=== PATIENT | male | born 1970 | race Caucasian/White ===

== ENCOUNTER 2019-05-26 19:40 | Observation (INO) | payer BC ==
[~2019-05-26 19:40] MED LIST: AZITHROMYCIN IV 250 MG in NA CHLORIDE 0.9% 250 ML IVPB SCH
--- OUTSIDE RECORDS SUMMARY | 2019-05-26 21:32 | XMS REPORT ---
:1970 Author Organization [facility] Address [facility] Mushtaq Salmon [address] [place] [id number] Care Team Providers Name Role Phone MARISSA THORNTON Unavailable Unavailable Problems This patient has no known problems. Allergies, Adverse Reactions, Alerts This patient has no known allergies or adverse reactions. Medications This patient has no known medications. Results Test Description Test Time Test Comments Text Results Atomic Results Result Comments (CELLAVISION MANUAL DIFF) 2019-03-03 09:49:00 Test Item Value Reference Range Comments NEUTROPHILS - REL (CELLAVISION)(BEAKER) (test yioa=7833) 84 % LYMPHOCYTES - REL (CELLAVISION)(BEAKER) (test gqgh=9468) 11 % MONOCYTES - REL (CELLAVISION)(BEAKER) (test ivvj=7794) 4 % EOSINOPHILS - REL (CELLAVISION)(BEAKER) (test mfbt=3139) 1 % NEUTROPHILS - ABS (CELLAVISION)(BEAKER) (test axyx=3961) 16.80 K/ul 1.78- 5.38 LYMPHOCYTES - ABS (CELLAVISION)(BEAKER) (test ojpc=4765) 2.20 K/ul 1.32-3.57 MONOCYTES - ABS (CELLAVISION)(BEAKER) (test sgij=5910) 0.80 K/uL 0.30-0.82 EOSINOPHILS - ABS (CELLAVISION)(BEAKER) (test kvny=7422) 0.20 K/uL 0.04-0.54 TOTAL COUNTED (BEAKER) (test rsri=0424) 100 RBC MORPHOLOGY (BEAKER) (test epvo=740) Normal WBC MORPHOLOGY (BEAKER) (test hmfk=108) Normal GIANT PLATELETS (BEAKER) (test ynkv=226) Present PLATELET CONCENTRATION (CELLAVISION)(BEAKER) (test uuej=7371) Adequate Received comment: User comments: Slide comments:BASIC METABOLIC [id number] 07:41:00 Test Item Value Reference Range Comments SODIUM (BEAKER) (test 136 meq/L 136-145 yzem=791) POTASSIUM (BEAKER) (test 4.2 meq/L 3.5-5.1 Specimen slightly iorw=721) hemolyzed CHLORIDE (BEAKER) (test 104 meq/L 98-107 hzlt=643) CO2 (BEAKER) (test 22 meq/L 22-29 jcnz=349) BLOOD UREA NITROGEN 11 mg/dL 7-21 (BEAKER) (test akhs=702) CREATININE (BEAKER) (test 0.77 mg/dL 0.57-1.25 Specimen slightly xbyd=180) hemolyzed GLUCOSE RANDOM (BEAKER) 96 mg/dL 70-105 (test mbcp=764) CALCIUM (BEAKER) (test 8.7 mg/dL 8.4-10.2 uvfm=955) EGFR (BEAKER) (test 107 mL/min/1.73 sq m ESTIMATED GFR IS NOT gshf=9583) ACCURATE CREATININE CLEARANCE IN PREDICTING GLOMERULAR FILTRATION RATE. ESTIMATED GFR IS NOT APPLICABLE FOR DIALYSIS PATIENTS. CBC W/PLT COUNT & AUTO [id number] 06:51:00 Test Item Value Reference Range Comments WHITE BLOOD CELL COUNT (BEAKER) (test sttb=844) 20.0 K/ L 3.5-10.5 RED BLOOD CELL COUNT (BEAKER) (test bzdb=543) 4.98 M/ L 4.63-6.08 HEMOGLOBIN (BEAKER) (test nzkb=018) 13.7 GM/DL 13.7-17.5 HEMATOCRIT (BEAKER) (test zosg=095) 42.8 % 40.1-51.0 MEAN CORPUSCULAR VOLUME (BEAKER) (test jits=162) 85.9 fL 79.0-92.2 MEAN CORPUSCULAR HEMOGLOBIN (BEAKER) (test 27.5 pg 25.7-32.2 odll=915) MEAN CORPUSCULAR HEMOGLOBIN CONC (BEAKER) (test 32.0 GM/DL 32.3-36.5 tprq=038) RED CELL DISTRIBUTION WIDTH (BEAKER) (test 14.6 % 11.6-14.4 rgdh=252) PLATELET COUNT (BEAKER) (test uscb=024) 244 K/CU MM 150-450 MEAN PLATELET VOLUME (BEAKER) (test lknm=336) 11.3 fL 9.4-12.4 NUCLEATED RED BLOOD CELLS (BEAKER) (test 0 /100 WBC 0-0 qohg=082) CBC W/PLT COUNT & AUTO [id number] 08:41:00 Test Item Value Reference Range Comments WHITE BLOOD CELL COUNT (BEAKER) (test sfyn=873) 17.2 K/ L 3.5-10.5 RED BLOOD CELL COUNT (BEAKER) (test jtsi=106) 4.83 M/ L 4.63-6.08 HEMOGLOBIN (BEAKER) (test bskf=009) 13.4 GM/DL 13.7-17.5 HEMATOCRIT (BEAKER) (test lvku=391) 40.8 % 40.1-51.0 MEAN CORPUSCULAR VOLUME (BEAKER) (test ljqi=999) 84.5 fL 79.0-92.2 MEAN CORPUSCULAR HEMOGLOBIN (BEAKER) (test 27.7 pg 25.7-32.2 dbby=157) MEAN CORPUSCULAR HEMOGLOBIN CONC (BEAKER) (test 32.8 GM/DL 32.3-36.5 tquo=822) RED CELL DISTRIBUTION WIDTH (BEAKER) (test 14.4 % 11.6-14.4 lsgd=310) PLATELET COUNT (BEAKER) (test ywvp=377) 240 K/CU MM 150-450 MEAN PLATELET VOLUME (BEAKER) (test muvr=389) 10.8 fL 9.4-12.4 NUCLEATED RED BLOOD CELLS (BEAKER) (test 0 /100 WBC 0-0 ygak=458) (CELLAVISION MANUAL DIFF)2019-03-02 08:41:00 Test Item Value Reference Range Comments NEUTROPHILS - REL (CELLAVISION)(BEAKER) (test 74 % ccej=5597) LYMPHOCYTES - REL (CELLAVISION)(BEAKER) (test 10 % qdsk=6225) MONOCYTES - REL (CELLAVISION)(BEAKER) (test 12 % uogp=4107) ATYPICAL LYMPHOCYTES - REL (CELLAVISION)(BEAKER) 4 % 0-0 (test rzld=9519) NEUTROPHILS - ABS (CELLAVISION)(BEAKER) (test 12.73 K/ul 1.78-5.38 gzqz=3815) LYMPHOCYTES - ABS (CELLAVISION)(BEAKER) (test 1.72 K/ul 1.32-3.57 vcmp=7727) MONOCYTES - ABS (CELLAVISION)(BEAKER) (test 2.06 K/uL 0.30-0.82 tsot=0612) ATYPICAL LYMPHOCYTES - ABS (CELLAVISION)(BEAKER) 0.69 K/uL 0.00-0.00 (test dfwp=6963) TOTAL COUNTED (BEAKER) (test zogh=5296) 100 RBC MORPHOLOGY (BEAKER) (test pwql=810) Normal WBC MORPHOLOGY (BEAKER) (test orup=031) Normal PLT MORPHOLOGY (BEAKER) (test nksj=800) Normal ARTIFACT (CELLAVISION)(BEAKER) (test lyir=9081) Present PLATELET CONCENTRATION (CELLAVISION)(BEAKER) Adequate (test bzur=2904) Received comment: User comments: Slide comments:BASIC METABOLIC [id number] 06:31:00 Test Item Value Reference Range Comments SODIUM (BEAKER) (test 138 meq/L 136-145 jlxv=080) POTASSIUM (BEAKER) (test 3.7 meq/L 3.5-5.1 ifyi=999) CHLORIDE (BEAKER) (test 107 meq/L 98-107 aknx=859) CO2 (BEAKER) (test 26 meq/L 22-29 nvji=048) BLOOD UREA NITROGEN 12 mg/dL 7-21 (BEAKER) (test mdxg=546) CREATININE (BEAKER) (test 0.69 mg/dL 0.57-1.25 gohr=576) GLUCOSE RANDOM (BEAKER) 97 mg/dL 70-105 (test tjib=682) CALCIUM (BEAKER) (test 8.3 mg/dL 8.4-10.2 xfsp=037) EGFR (BEAKER) (test 122 mL/min/1.73 sq m ESTIMATED GFR IS NOT pgve=7439) ACCURATE CREATININE CLEARANCE IN PREDICTING GLOMERULAR FILTRATION RATE. ESTIMATED GFR IS NOT APPLICABLE FOR DIALYSIS PATIENTS. RAD, CHEST, 1 VIEW, NON [id number] 04:33:00Reason for exam:->IABP PlacementShould this be performed at the bedside?->YesFINAL REPORT CLINICAL INDICATION: IABP placement Comparison: 03/01/2019 No radiopaque IABP tip is identified. Please correlate. Repeat imaging can be performed, as indicated. The cardiomediastinal contours are stable. Central pulmonary vascular prominence and bilateral parenchymal opacities are unchanged. There is no pneumothorax. Signed: Shreyas Kim MDReport Verified Date/Time: 03/02/2019 04:33:54 [id number] 17:48:00 Test Item Value Reference Range Comments ACTIVATED CLOTTING TIME 274 sec Reference Range: 74-137 (BEAKER) (test ajfv=879) seconds, Baseline/TESTED AT [place] [address] [id number] 17:48:00 Test Item Value Reference Range Comments ACTIVATED CLOTTING TIME 202 sec Reference Range: 74-137 (BEAKER) (test pnub=508) seconds, Baseline/TESTED AT [place] [address] [id number] 17:48:00 Test Item Value Reference Range Comments ACTIVATED CLOTTING TIME 433 sec Reference Range: 74-137 (BEAKER) (test wmwo=849) seconds, Baseline/TESTED AT [place] [address] [id number] 16:19:00 Test Item Value Reference Range Comments ACTIVATED CLOTTING TIME 301 sec Reference Range: 74-137 (BEAKER) (test jwbh=925) seconds, Baseline/TESTED AT [place] [address] CBC W/PLT COUNT & AUTO [id number] 13:27:00 Test Item Value Reference Range Comments WHITE BLOOD CELL COUNT (BEAKER) (test leai=465) 18.6 K/ L 3.5-10.5 RED BLOOD CELL COUNT (BEAKER) (test xubl=440) 5.11 M/ L 4.63-6.08 HEMOGLOBIN (BEAKER) (test bzcp=820) 14.1 GM/DL 13.7-17.5 HEMATOCRIT (BEAKER) (test xsuq=707) 44.1 % 40.1-51.0 MEAN CORPUSCULAR VOLUME (BEAKER) (test lfvt=426) 86.3 fL 79.0-92.2 MEAN CORPUSCULAR HEMOGLOBIN (BEAKER) (test 27.6 pg 25.7-32.2 uvyo=252) MEAN CORPUSCULAR HEMOGLOBIN CONC (BEAKER) (test 32.0 GM/DL 32.3-36.5 mzsv=966) RED CELL DISTRIBUTION WIDTH (BEAKER) (test 14.3 % 11.6-14.4 iokh=738) PLATELET COUNT (BEAKER) (test cnnk=162) 215 K/CU MM 150-450 MEAN PLATELET VOLUME (BEAKER) (test uono=346) 10.4 fL 9.4-12.4 NUCLEATED RED BLOOD CELLS (BEAKER) (test 0 /100 WBC 0-0 pffg=745) (CELLAVISION MANUAL DIFF)2019-03-01 13:27:00 Test Item Value Reference Range Comments NEUTROPHILS - REL (CELLAVISION)(BEAKER) (test 80 % vyzf=5957) LYMPHOCYTES - REL (CELLAVISION)(BEAKER) (test 11 % gelv=0708) MONOCYTES - REL (CELLAVISION)(BEAKER) (test 9 % rfbb=0952) NEUTROPHILS - ABS (CELLAVISION)(BEAKER) (test 14.88 K/ul 1.78-5.38 nhiq=3310) LYMPHOCYTES - ABS (CELLAVISION)(BEAKER) (test 2.05 K/ul 1.32-3.57 spso=3416) MONOCYTES - ABS (CELLAVISION)(BEAKER) (test 1.67 K/uL 0.30-0.82 uoez=5701) TOTAL COUNTED (BEAKER) (test kmsw=0059) 100 WBC MORPHOLOGY (BEAKER) (test vgdh=173) Normal PLT MORPHOLOGY (BEAKER) (test snit=561) Normal POLYCHROMATOPHILLIC RBCS(BEAKER) (test btel=430) 1+ few ANISOCYTOSIS (BEAKER) (test qjst=043) 1+ few POIKILOCYTES (BEAKER) (test fypr=886) 1+ few ELLIPTOCYTES (BEAKER) (test vkmt=195) 1+ few XIOMARA CELLS (BEAKER) (test rpqs=702) 1+ few ALT (SGPT)2019-03-01 09:33:00 Test Item Value Reference Range Comments ALT (SGPT) (BEAKER) (test vrze=083) 58 U/L 6-55 AST (SGOT)2019-03-01 09:33:00 Test Item Value Reference Range Comments AST (SGOT) (BEAKER) (test juxz=259) 130 U/L 5-34 [id number] 09:33:00 Test Item Value Reference Range Comments LIPASE (BEAKER) (test clgz=358) 15 U/L 8-78 [id number] 09:33:00 Test Item Value Reference Range Comments AMYLASE (BEAKER) (test yonp=129) 32 U/L 25-125 RAD, CHEST, 1 VIEW, NON [id number] 07:59:00Reason for exam:->IABP PlacementShould this be performed at the bedside?->YesFINAL REPORT CLINICAL HISTORY: IABP Placement TECHNIQUE: 1 view of the chest.COMPARISON: 02/28/2019 IMPRESSION: There is no evidence of a radiopaque IABP catheter tip, and clinical correlation is recommended. Diffuse bilateral interstitial infiltrates are similar versus slightly increased. Subpulmonic pleural effusions cannot be excluded. The cardiomediastinal silhouette is magnified by technique. Signed: Olman Denton [facility] Verified Date/Time: 07:59:01 ReadingLocation: [facility] Radiology Reading Room BASIC METABOLIC [id number] 06:30:00 Test Item Value Reference Range Comments SODIUM (BEAKER) (test 134 meq/L 136-145 zfly=107) POTASSIUM (BEAKER) (test 4.2 meq/L 3.5-5.1 Specimen moderately lsjd=104) hemolyzed CHLORIDE (BEAKER) (test 102 meq/L 98-107 zenx=491) CO2 (BEAKER) (test 28 meq/L 22-29 opid=462) BLOOD UREA NITROGEN 9 mg/dL 7-21 (BEAKER) (test vsls=465) CREATININE (BEAKER) (test 0.72 mg/dL 0.57-1.25 Specimen moderately bdyu=336) hemolyzed GLUCOSE RANDOM (BEAKER) 104 mg/dL 70-105 (test pwem=313) CALCIUM (BEAKER) (test 8.5 mg/dL 8.4-10.2 rrtw=647) EGFR (BEAKER) (test 116 mL/min/1.73 sq m ESTIMATED GFR IS NOT bidy=9264) ACCURATE CREATININE CLEARANCE IN PREDICTING GLOMERULAR FILTRATION RATE. ESTIMATED GFR IS NOT APPLICABLE FOR DIALYSIS PATIENTS. RAD, CHEST, 1 VIEW, NON [id number] 07:53:00Reason for exam:->IABP PlacementShould this be performed at the bedside?->YesFINAL REPORT CLINICAL HISTORY: IABP Placement TECHNIQUE: 1 view of the chest.COMPARISON: 02/27/2019 IMPRESSION: The previous IABP catheter tip is no longer seen, and clinical correlation is requested. Diffuse bilateral airspace lung opacities are similar appearing. There is no significant appearing pleural fluid. The cardiomediastinal silhouette is magnified by technique. Signed: [facility] Verified Date/Time: 02/28/2019 07:53:38 Reading Location: [facility] Radiology Reading Room [facility] [id number] 06:33:00 Test Item Value Reference Range Comments TROPONIN I (BEAKER) (test kbep=847) 56.68 ng/mL 0.00-0.03 Troponin I (TnI) levels must be interpreted in the context of the presenting symptoms and the clinical findings. Elevated TnI levels indicate myocardial damage, but are not specific for ischemic heart disease. Elevated TnI levels are seen in patients with other cardiac conditions (including myocarditis and congestive heart failure), and slight TnI elevations occur in patients with other conditions, including sepsis, renal failure, acidosis, acute neurological disease, and persistent tachyarrhythmia.BASIC METABOLIC [id number] 06:09:00 Test Item Value Reference Range Comments SODIUM (BEAKER) (test 134 meq/L 136-145 pjah=299) POTASSIUM (BEAKER) (test 4.0 meq/L 3.5-5.1 Specimen slightly ccdn=280) hemolyzed CHLORIDE (BEAKER) (test 100 meq/L 98-107 lmtt=156) CO2 (BEAKER) (test 28 meq/L 22-29 hxmy=500) BLOOD UREA NITROGEN 10 mg/dL 7-21 (BEAKER) (test sbra=331) CREATININE (BEAKER) (test 0.71 mg/dL 0.57-1.25 Specimen slightly nepj=854) hemolyzed GLUCOSE RANDOM (BEAKER) 85 mg/dL 70-105 (test mwaj=054) CALCIUM (BEAKER) (test 8.4 mg/dL 8.4-10.2 pbbv=860) EGFR (BEAKER) (test 118 mL/min/1.73 sq m ESTIMATED GFR IS NOT dlwt=1493) ACCURATE CREATININE CLEARANCE IN PREDICTING GLOMERULAR FILTRATION RATE. ESTIMATED GFR IS NOT APPLICABLE FOR DIALYSIS PATIENTS. CBC W/PLT COUNT & AUTO [id number] 06:09:00 Test Item Value Reference Range Comments WHITE BLOOD CELL COUNT (BEAKER) (test lllr=908) 19.8 K/ L 3.5-10.5 RED BLOOD CELL COUNT (BEAKER) (test dhak=196) 4.92 M/ L 4.63-6.08 HEMOGLOBIN (BEAKER) (test jkfv=404) 13.6 GM/DL 13.7-17.5 HEMATOCRIT (BEAKER) (test pajs=957) 42.6 % 40.1-51.0 MEAN CORPUSCULAR VOLUME (BEAKER) (test rnuq=418) 86.6 fL 79.0-92.2 MEAN CORPUSCULAR HEMOGLOBIN (BEAKER) (test 27.6 pg 25.7-32.2 ucfs=942) MEAN CORPUSCULAR HEMOGLOBIN CONC (BEAKER) (test 31.9 GM/DL 32.3-36.5 sawy=853) RED CELL DISTRIBUTION WIDTH (BEAKER) (test 14.5 % 11.6-14.4 sdbt=829) PLATELET COUNT (BEAKER) (test hoih=196) 226 K/CU MM 150-450 MEAN PLATELET VOLUME (BEAKER) (test hiov=515) 10.8 fL 9.4-12.4 NUCLEATED RED BLOOD CELLS (BEAKER) (test 0 /100 WBC 0-0 enwv=638) NEUTROPHILS RELATIVE PERCENT (BEAKER) (test 77 % jodx=400) LYMPHOCYTES RELATIVE PERCENT (BEAKER) (test 14 % escv=307) MONOCYTES RELATIVE PERCENT (BEAKER) (test 9 % bfvf=964) EOSINOPHILS RELATIVE PERCENT (BEAKER) (test 0 % ncqt=551) BASOPHILS RELATIVE PERCENT (BEAKER) (test 0 % rvzx=898) NEUTROPHILS ABSOLUTE COUNT (BEAKER) (test 15.13 K/ L 1.78-5.38 yqri=762) LYMPHOCYTES ABSOLUTE COUNT (BEAKER) (test 2.77 K/ L 1.32-3.57 tlup=914) MONOCYTES ABSOLUTE COUNT (BEAKER) (test 1.68 K/ L 0.30-0.82 hzqa=750) EOSINOPHILS ABSOLUTE COUNT (BEAKER) (test 0.03 K/ L 0.04-0.54 mbno=256) BASOPHILS ABSOLUTE COUNT (BEAKER) (test 0.03 K/ L 0.01-0.08 wnnd=528) IMMATURE GRANULOCYTES-RELATIVE PERCENT (BEAKER) 1 % 0-1 (test vlcb=9352) TROPONIN [id number] 16:46:00 Test Item Value Reference Range Comments TROPONIN I (BEAKER) (test lskd=172) 77.92 ng/mL 0.00-0.03 Troponin I (TnI) levels must be interpreted in the context of the presenting symptoms and the clinical findings. Elevated TnI levels indicate myocardial damage, but are not specific for ischemic heart disease. Elevated TnI levels are seen in patients with other cardiac conditions (including myocarditis and congestive heart failure), and slight TnI elevations occur in patients with other conditions, including sepsis, renal failure, acidosis, acute neurological disease, and persistent tachyarrhythmia.[id number] 12:16:00 Test Item Value Reference Range Comments PARTIAL THROMBOPLASTIN TIME (BEAKER) (test 47.8 seconds 22.5-36.0 jvuz=650) [id number] 06:16:00 Test Item Value Reference Range Comments MAGNESIUM (BEAKER) (test dynr=679) 1.8 mg/dL 1.6-2.6 HEMOGLOBIN [id number] 05:58:00 Test Item Value Reference Range Comments HEMOGLOBIN A1C (BEAKER) (test xjww=166) 5.7 % 4.3-6.1 TROPONIN [id number] 05:53:00 Test Item Value Reference Range Comments TROPONIN I (BEAKER) (test wwsj=541) 122.58 ng/mL 0.00-0.03 Troponin I (TnI) levels must be interpreted in the context of the presenting symptoms and the clinical findings. Elevated TnI levels indicate myocardial damage, but are not specific for ischemic heart disease. Elevated TnI levels are seen in patients with other cardiac conditions (including myocarditis and congestive heart failure), and slight TnI elevations occur in patients with other conditions, including sepsis, renal failure, acidosis, acute neurological disease, and persistent tachyarrhythmia.[id number] 05:43:00 Test Item Value Reference Range Comments PARTIAL THROMBOPLASTIN TIME (BEAKER) (test 34.6 seconds 22.5-36.0 ixhg=709) BASIC METABOLIC [id number] 05:37:00 Test Item Value Reference Range Comments SODIUM (BEAKER) (test 138 meq/L 136-145 plda=734) POTASSIUM (BEAKER) (test 4.3 meq/L 3.5-5.1 yduo=235) CHLORIDE (BEAKER) (test 105 meq/L 98-107 pcge=948) CO2 (BEAKER) (test 27 meq/L 22-29 cnts=798) BLOOD UREA NITROGEN 13 mg/dL 7-21 (BEAKER) (test dcia=306) CREATININE (BEAKER) (test 0.79 mg/dL 0.57-1.25 hcsl=248) GLUCOSE RANDOM (BEAKER) 122 mg/dL 70-105 (test mjfy=360) CALCIUM (BEAKER) (test 8.6 mg/dL 8.4-10.2 oowe=108) EGFR (BEAKER) (test 104 mL/min/1.73 sq m ESTIMATED GFR IS NOT zoni=8296) ACCURATE CREATININE CLEARANCE IN PREDICTING GLOMERULAR FILTRATION RATE. ESTIMATED GFR IS NOT APPLICABLE FOR DIALYSIS PATIENTS. CBC W/PLT COUNT & AUTO [id number] 05:17:00 Test Item Value Reference Range Comments WHITE BLOOD CELL COUNT (BEAKER) (test bzij=955) 27.1 K/ L 3.5-10.5 RED BLOOD CELL COUNT (BEAKER) (test ktgh=932) 5.19 M/ L 4.63-6.08 HEMOGLOBIN (BEAKER) (test ujeq=238) 14.3 GM/DL 13.7-17.5 HEMATOCRIT (BEAKER) (test kuxe=975) 44.6 % 40.1-51.0 MEAN CORPUSCULAR VOLUME (BEAKER) (test tbst=456) 85.9 fL 79.0-92.2 MEAN CORPUSCULAR HEMOGLOBIN (BEAKER) (test 27.6 pg 25.7-32.2 jges=393) MEAN CORPUSCULAR HEMOGLOBIN CONC (BEAKER) (test 32.1 GM/DL 32.3-36.5 zjme=079) RED CELL DISTRIBUTION WIDTH (BEAKER) (test 14.4 % 11.6-14.4 zfdo=908) PLATELET COUNT (BEAKER) (test ohom=413) 258 K/CU MM 150-450 MEAN PLATELET VOLUME (BEAKER) (test lwco=253) 10.5 fL 9.4-12.4 NUCLEATED RED BLOOD CELLS (BEAKER) (test 0 /100 WBC 0-0 qtdp=193) RAD, CHEST, 1 VIEW, NON [id number] 04:38:00Reason for exam:->IABP PlacementShould this be performed at the bedside?->YesFINAL REPORT History: IABP placement. Comparison: 10/20/2014 Findings: A single view of the chest is submitted. The inferior right costophrenic sulcus is excluded from the examination. The radiopaque tip of an IABP overlies the superior margin of the aortic arch. The cardiac silhouette is within normal limits for size. There is central vascular congestion. Diffuse interstitialand patchy airspace opacities suggest pulmonary edema. There is no pneumothorax, large effusion oracute bony abnormality. Signed: Shreyas Kim MDRep[facility] Verified Date/Time: 02/27/2019 04:38:12 I [id number] 22:47:00 Test Item Value Reference Range Comments TROPONIN I (BEAKER) (test pjfl=596) 173.21 ng/mL 0.00-0.03 Troponin I (TnI) levels must be interpreted in the context of the presenting symptoms and the clinical findings. Elevated TnI levels indicate myocardial damage, but are not specific for ischemic heart disease. Elevated TnI levels are seen in patients with other cardiac conditions (including myocarditis and congestive heart failure), and slight TnI elevations occur in patients with other conditions, including sepsis, renal failure, acidosis, acute neurological disease, and persistent tachyarrhythmia.CBC W/PLT COUNT & AUTO [id number] 22:45:00 Test Item Value Reference Range Comments WHITE BLOOD CELL COUNT (BEAKER) (test qxxm=953) 26.9 K/ L 3.5-10.5 RED BLOOD CELL COUNT (BEAKER) (test dukt=433) 5.52 M/ L 4.63-6.08 HEMOGLOBIN (BEAKER) (test orny=884) 15.2 GM/DL 13.7-17.5 HEMATOCRIT (BEAKER) (test jnop=362) 47.2 % 40.1-51.0 MEAN CORPUSCULAR VOLUME (BEAKER) (test yrzp=754) 85.5 fL 79.0-92.2 MEAN CORPUSCULAR HEMOGLOBIN (BEAKER) (test 27.5 pg 25.7-32.2 ffbr=083) MEAN CORPUSCULAR HEMOGLOBIN CONC (BEAKER) (test 32.2 GM/DL 32.3-36.5 cysa=188) RED CELL DISTRIBUTION WIDTH (BEAKER) (test 14.4 % 11.6-14.4 ktqa=360) PLATELET COUNT (BEAKER) (test yrvs=887) 269 K/CU MM 150-450 MEAN PLATELET VOLUME (BEAKER) (test dnou=932) 10.1 fL 9.4-12.4 NUCLEATED RED BLOOD CELLS (BEAKER) (test 0 /100 WBC 0-0 nvhx=843) (CELLAVISION MANUAL DIFF)2019-02-26 22:45:00 Test Item Value Reference Range Comments NEUTROPHILS - REL (CELLAVISION)(BEAKER) (test 80 % icck=6188) LYMPHOCYTES - REL (CELLAVISION)(BEAKER) (test 15 % rgpp=4170) MONOCYTES - REL (CELLAVISION)(BEAKER) (test 3 % xxjg=8686) BASOPHILS - REL (CELLAVISION)(BEAKER) (test 1 % ikmp=9545) BANDS - REL (CELLAVISION)(BEAKER) (test 1 % 0-10 aodp=7653) NEUTROPHILS - ABS (CELLAVISION)(BEAKER) (test 21.52 K/ul 1.78-5.38 skam=7906) LYMPHOCYTES - ABS (CELLAVISION)(BEAKER) (test 4.04 K/ul 1.32-3.57 nypc=7350) MONOCYTES - ABS (CELLAVISION)(BEAKER) (test 0.81 K/uL 0.30-0.82 gstp=2278) BASOPHILS - ABS (CELLAVISION)(BEAKER) (test 0.27 K/uL 0.01-0.08 tgnh=1160) BANDS - ABS (CELLAVISION)(BEAKER) (test 0.27 K/uL 0.00-0.80 lshw=2997) TOTAL COUNTED (BEAKER) (test sfsw=2326) 100 MANUAL NRBC PER 100 CELLS (BEAKER) (test 2 /100 WBC 0-0 fuil=3410) RBC MORPHOLOGY (BEAKER) (test cujf=242) Normal PLT MORPHOLOGY (BEAKER) (test phee=957) Normal SMUDGE CELLS (BEAKER) (test wbgv=3612) Present PLATELET CONCENTRATION (CELLAVISION)(BEAKER) Adequate (test bnwl=3228) Received comment: User comments: Slide comments:TSH/FREE T4 IF [id number] 22:43:00 Test Item Value Reference Range Comments THYROID STIMULATING HORMONE (BEAKER) (test 0.70 uIU/mL 0.35-4.94 utdf=496) B-TYPE NATRIURETIC FACTOR (BNP)2019-02-26 22:29:00 Test Item Value Reference Range Comments B-TYPE NATRIURETIC PEPTIDE (BEAKER) (test przy=854) 20 pg/mL 0-100 [id number] 22:23:00 Test Item Value Reference Range Comments MAGNESIUM (BEAKER) (test qboq=704) 1.7 mg/dL 1.6-2.6 BASIC METABOLIC [id number] 22:23:00 Test Item Value Reference Range Comments SODIUM (BEAKER) (test 137 meq/L 136-145 coto=661) POTASSIUM (BEAKER) (test 4.1 meq/L 3.5-5.1 ewkc=677) CHLORIDE (BEAKER) (test 105 meq/L 98-107 qfvd=751) CO2 (BEAKER) (test 24 meq/L 22-29 rign=754) BLOOD UREA NITROGEN 11 mg/dL 7-21 (BEAKER) (test kxsb=778) CREATININE (BEAKER) (test 0.82 mg/dL 0.57-1.25 fiuw=108) GLUCOSE RANDOM (BEAKER) 123 mg/dL 70-105 (test trdb=497) CALCIUM (BEAKER) (test 8.3 mg/dL 8.4-10.2 yupk=037) EGFR (BEAKER) (test 100 mL/min/1.73 sq m ESTIMATED GFR IS NOT nukn=3853) ACCURATE CREATININE CLEARANCE IN PREDICTING GLOMERULAR FILTRATION RATE. ESTIMATED GFR IS NOT APPLICABLE FOR DIALYSIS PATIENTS. LIPID [id number] 22:23:00 Test Item Value Reference Range Comments TRIGLYCERIDES (BEAKER) (test aipe=502) 108 mg/dL CHOLESTEROL (BEAKER) (test ybrw=399) 153 mg/dL HDL CHOLESTEROL (BEAKER) (test scys=309) 29 mg/dL LDL CHOLESTEROL CALCULATED (BEAKER) (test 102 mg/dL neut=095) Triglyceride Reference Range: Low Risk <150 Borderline 150- 199 High Risk 200-499 Very High Risk >=500Cholesterol Reference Range: Low Risk <200 Borderline 200-239 High Risk > 240HDL Cholesterol Reference Range: Low Risk >=60 High Risk <40LDL Cholesterol Reference Range: Optimal <100 Near Optimal 100-129 Borderline 130-159 High 160-189 Very High >=190HEPATIC FUNCTION [id number] 22:23:00 Test Item Value Reference Range Comments TOTAL PROTEIN (BEAKER) (test eofd=377) 7.1 gm/dL 6.0-8.3 ALBUMIN (BEAKER) (test hmrt=4822) 3.9 g/dL 3.5-5.0 BILIRUBIN TOTAL (BEAKER) (test xapl=487) 0.5 mg/dL 0.2-1.2 BILIRUBIN DIRECT (BEAKER) (test yqhk=720) 0.2 mg/dL 0.1-0.5 ALKALINE PHOSPHATASE (BEAKER) (test cbnn=665) 83 U/L 40-150 AST (SGOT) (BEAKER) (test mnip=538) 373 U/L 5-34 ALT (SGPT) (BEAKER) (test laou=224) 81 U/L 6-55 [id number] 19:27:00 Test Item Value Reference Range Comments ACTIVATED CLOTTING TIME 197 sec Reference Range: 74-137 (BEAKER) (test bibl=205) seconds, Baseline/TESTED AT [place] [address] [id number] 18:21:00 Test Item Value Reference Range Comments ACTIVATED CLOTTING TIME 296 sec Reference Range: 74-137 (BEAKER) (test fyqc=025) seconds, Baseline/TESTED AT [place] [address] [id number] 18:21:00 Test Item Value Reference Range Comments ACTIVATED CLOTTING TIME 213 sec Reference Range: 74-137 (BEAKER) (test nbke=823) seconds, Baseline/TESTED AT [place] [address]
[2019-05-26 22:06] VITALS: BMI 25.4
[2019-05-26] MEDS ORDERED: ACETAMINOPHEN 500 MG TAB PO PRN (22:46)
[2019-05-26] MEDS ORDERED: ONDANSETRON 4 MG/2 ML VIAL IV PRN (22:46)
[2019-05-26] MEDS ORDERED: Levofloxacin 750mg IV 750 MG/150 ML BAG IV SCH (23:00)
[2019-05-26] MEDS: NA CHLORIDE 0.9% 1,000 ML IV SCH (23:27)
[2019-05-27] MEDS: METHYLPREDNISOLONE 40 MG INJ IV SCH ×4 (00:56→18:06)
[2019-05-27] MEDS ORDERED: CEFTRIAXONE 1 GM/NS 50 ML 1 GM/50 ML BAG IV SCH ×2 (01:00→18:00)
[2019-05-27] MEDS: ALBUTEROL 2.5 MG/3 ML NEB SOL NEB SCH ×4 (01:20→20:10)
[2019-05-27] MEDS: IPRATROPIUM BROM 0.5MG/2.5ML NEB SCH ×4 (01:20→20:10)
--- NOTE | 2019-05-27 03:17 | P.HP ---
Certification for Inpatient Patient admitted to: Observation With expected LOS: <2 Midnights Patient will require the following post-hospital care: None Practitioner: I am a practitioner with admitting privileges, knowledge of patient current condition, hospital course, and medical plan of care. Services: Services provided to patient in accordance with Admission requirements found in Title 42 Section 412.3 of the Code of Federal Regulations Patient History Date of Service: 05/26/19 Reason for admission: Pneumonia History of Present Illness: Patient is a 49-year-old gentleman who came to the hospital with shortness of breath. Patient has been having some upper respiratory symptoms including coughing and he is congested. In the emergency room, chest x-ray revealed bilateral lower lobe pneumonia. Patient was tachypneic and tachycardic. Patient will be admitted to the hospital for further workup. Patient is also a smoker. Patient smokes about a pack a day. He may also have COPD. He will be admitted to the hospital for further evaluation. Allergies levofloxacin [From Levaquin] Allergy (Verified 05/26/19 23:44) Itching/Hives/Rash Home Medications: Aspirin 81 mg PO DAILY 05/26/19 Atorvastatin Calcium [Lipitor] 80 mg PO BEDTIME 05/26/19 Cyclobenzaprine [Flexeril*] 10 mg PO BID PRN 05/26/19 Duloxetine HCl 60 mg PO BID 05/26/19 Furosemide [Lasix] 20 mg PO DAILYPRN PRN 05/26/19 Hydrocodone Bit/Acetaminophen [Hydrocodon-Acetaminophn 10-325] 1 tab PO TIDP PRN 05/26/19 Metoprolol Tartrate 50 mg PO BID 05/26/19 Morphine Ir [MSIR (Morphine Sulfate IR)*] 15 mg PO BEDTIME 05/26/19 Omeprazole 20 mg PO BID 05/26/19 Testosterone Cypionate [Testone Cik] 1 mg IM SEECOM 05/26/19 Ticagrelor [Brilinta*] 90 mg PO BID 05/26/19 - Past Medical/Surgical History Has patient received pneumonia vaccine in the past: No -: Coronary artery disease-2019 -: Pancreatitis -: Pancreatic Stents -: Dyslipidemia -: Chronic Back Pain -: Pancreatic Surgery - Family History Father Medical History: Lung disease, Diabetes, Other (see notes) Notes: CHF, COPD Mother Medical History: Hypertension, Other (see notes) Notes: High Cholesterol - Social History Smoking Status: Current some day smoker Alcohol use: No CD- Drugs: No Caffeine use: Yes Place of Residence: Home Review of Systems 10-point ROS is otherwise unremarkable Physical Examination - Vital Signs Temperature: 97.8 F Blood Pressure: 92/61 Pulse: 89 Respirations: 18 Pulse Ox (%): 94 - Physical Exam General: Alert, In no apparent distress, Oriented x3 HEENT: Atraumatic, PERRLA, Mucous membr. moist/pink, EOMI, Sclerae nonicteric Neck: Supple, 2+ carotid pulse no bruit, No LAD, Without JVD or thyroid abnormality Respiratory: Diminished, Expiratory wheezes, Rhonchi/gurgles Cardiovascular: Regular rate/rhythm, Normal S1 S2, No murmurs Gastrointestinal: Normal bowel sounds, Soft and benign, Non-distended, No tenderness, No rebound, No guarding Musculoskeletal: No clubbing, No swelling, No tenderness Integumentary: No rashes Neurological: Normal gait, Normal speech, Normal strength at 5/5 x4 extr, Normal tone, Sensation intact, Cranial nerves 3-12 intact, Normal affect Lymphatics: No axilla or inguinal lymphadenopathy - Studies Microbiology Data (last 24 hrs): 05/26/19 23:30 Nasopharnyx Influenza Type A Antigen Screen - Final 05/26/19 23:30 Nasopharnyx Influenza Type B Antigen Screen - Final Assessment & Plan - Problems (Diagnosis) (1) Pneumonia of both lower lobes Current Visit: Yes Status: Acute (2) COPD with acute exacerbation Current Visit: Yes Status: Acute (3) Tobacco abuse Current Visit: Yes Status: Acute (4) CAD (coronary artery disease) Current Visit: Yes Status: Acute Qualifiers: Coronary Disease-Associated Artery/Lesion type: gambell artery - Plan 1. Continue with IV antibiotics 2. Awaiting sputum and blood culture 3. Repeat chest x-ray 4. Will proceed with CT scan of the chest if pneumonia is not improved to evaluate for postobstructive pneumonia 5. Pulmonary consultation if the patient symptoms are not improving 6. Continue with nebs as needed and also start IV steroids 7. O2 per protocol 8. Continue with gentle hydration 9. Repeat labs including CBC and renal function in a.m. 10. GI and DVT prophylaxis Discharge Plan: Home Plan to discharge in: 48 Hours - Advance Directives Does patient have a Living Will: No Does patient have a Durable POA for Healthcare: No - Code Status/Comfort Care Code Status Assessed: Yes Code Status: Full Code Critical Care: No Time Spent Managing PTS Care (In Minutes): 45
[2019-05-27 06:05] LABS: Absolute Lymphocytes (CBC) 1.3 K/uL (0.7-4.9); Basophils % 0.2 % (0-1.3); Hematocrit 42.7 % (39.6-49.0); Lymphocytes % 10.8 % (15.3-44.8); MPV 9.6 fL (7.6-11.3); RBC Red Blood Cell Count 5.09 M/uL (4.33-5.43)
[2019-05-27 06:26] LABS: Bilirubin Total 0.5 mg/dL (0.2-1.0); Magnesium 2.1 mg/dL (1.8-2.4); Phosphorus 2.5 mg/dL (2.5-4.9); Protein, Total 7.2 g/dL (6.4-8.2)
[2019-05-27 06:58] LABS: Blood Morphology Comment NOT SEEN (NOT SEEN); Platelet Estimate ADEQ; Urine White Blood Cell Casts OK
[2019-05-27] MEDS ORDERED: CEFTRIAXONE/SWI 1gm 1 GM/10 ML SYR IVP SCH (09:00)
[2019-05-27] MEDS: ENOXAPARIN 40 MG/0.4 ML SQ SCH (09:00)
[2019-05-27] MEDS ORDERED: AZITHROMYCIN IV 250 MG in NA CHLORIDE 0.9% 250 ML IVPB SCH ×2 (09:00→19:00)
[2019-05-27] MEDS ORDERED: FUROSEMIDE 20 MG TABLET PO PRN (10:35)
[2019-05-27] MEDS ORDERED: CYCLOBENZAPRINE 10 MG TAB PO PRN (10:35)
[2019-05-27] MEDS: HYDROCODONE/APAP 10/325 TAB PO PRN ×2 (12:11→18:11)
[2019-05-27] MEDS: NA CHLORIDE 0.9% 1,000 ML IV SCH (12:20)
--- NOTE | 2019-05-27 14:52 | RAD REPORT ---
EXAM DESCRIPTION: Marlene Pa And Lat (2 Views)05/27/2019 2:29 pm CLINICAL HISTORY: Cough COMPARISON: 2014 FINDINGS: Diffuse bilateral interstitial lung opacities are present. The heart is upper limits normal size. Small pleural effusions suspected IMPRESSION: Moderate diffuse bilateral interstitial pulmonary opacities may represent an atypical in fection, pneumonitis or miliary disease
[2019-05-27] MEDS ORDERED: PANTOPRAZOLE 40MG TABLET PO SCH (16:30)
--- NOTE | 2019-05-27 16:56 | PN ---
Subjective: Currently, patient is lying in bed. He looks comfortable. He is eating his lunch. No chest pain. No abdominal pain. Continues to be short of breath. Objective: Vital Signs: Blood pressure is 101/56, respiratory rate 17, pulse 99, temperature 97.7. Patient is saturating 97% on 2 L nasal cannula. General: He is alert and oriented x3. Does not look in any distress. HEENT: Atraumatic, normocephalic. PERRLA. Oral mucosa is moist. Neck: Supple. No JVD. No bruits. Chest: Decreased breath sound in the bases. Expiratory wheezing. Heart: Regular rate and rhythm. S1, S2 normal. No gallop or murmur. Abdomen: Soft, nontender. No masses. No hepatosplenomegaly. Positive bowel sounds. Extremities: No clubbing, cyanosis, or edema. No calf tenderness. Neurologic: Grossly intact. Cranial nerve exam 2 through 12 intact. Normal sensation. Normal refl exes. Normal muscle strength. Laboratory Data: This morning, white blood cells , platelets normal. Chemistry within nor mal except for chloride of 108, GFR of 89. BNP Assessment/plan: 1.Bilateral lower lobe pneumonia on CT done at [facility]. Continue IV antibiotics with Zi thromax and ceftriaxone. Continue patient on oxygen inhalers as before. 2.History of coronary artery disease. Patient on atorvastatin, metoprolol, aspirin as before as wel l as Falguni. 3.History of tobacco abuse with questionable history of chronic obstructive pulmonary disease. Zulema ent denies history of chronic obstructive pulmonary disease. 4.Elevated BNP. I will order echocardiogram except I am not sure if it will be done due to the week end. 5.Deep vein thrombosis prophylaxis, on Lovenox. Continue. 6.Elevated BNP? congestive heart failure. We will order chest x-ray today. We will start patient on Lasix 40 daily IV and order echocardiogram. MT/MODL Voice ID: [id number] Report ID: [id number]
[2019-05-27 20:58] VITALS: BP 99/62; TEMP 98.6
[2019-05-27] MEDS ORDERED: TICAGRELOR 90 MG TABLET PO SCH (21:00)
[2019-05-27] MEDS ORDERED: DULOXETINE 30 MG CAP PO SCH (21:00)
[2019-05-27] MEDS ORDERED: HOME MED 1 EA UNK (Omeprazole [Omeprazole] 20 MG) PO SCH (21:00)
[2019-05-27] MEDS ORDERED: ATORVASTATIN 80 MG TAB PO SCH (21:00)
[2019-05-27] MEDS ORDERED: METOPROLOL TAR 25 MG TAB PO SCH (21:00)
[2019-05-27] MEDS ORDERED: HOME MED 1 EA UNK (Duloxetine Hcl [Duloxetine Hcl] 60 MG) PO SCH (21:00)
[2019-05-27 22:01] VITALS: O2SAT 93
[2019-05-28] MEDS ORDERED: FUROSEMIDE 40 MG/4 ML VIAL IV SCH (09:00)
[2019-05-28] MEDS ORDERED: ASPIRIN 81 MG CHEWABLE TABLET PO SCH (09:00)
== END 2019-05-27 20:58 | disposition left against medical advice (07) ==
LOC: 2ND 19:40
PROVIDERS: ADMIT Hospitalist; ATTEND Hospitalist
DX: J18.9 Pneumonia, unspecified organism (principal); R79.89 Other specified abnormal findings of blood chemistry; I25.10 Atherosclerotic heart disease of native coronary artery without angina pectoris; K85.90 Acute pancreatitis without necrosis or infection, unspecified; F17.210 Nicotine dependence, cigarettes, uncomplicated; Z53.29 Procedure and treatment not carried out because of patient's decision for other reasons; Z79.82 Long term (current) use of aspirin
CPT/HCPCS: 87040; 85025; 36415 ×2; 83735; 84100; 80061; 83605; 80053; 84145; 83880; 87804 ×2; 71046; 94640 ×4; 94760 ×3; J0456; J0696; J7030; J2920 ×4; G0378 ×3; J1650

== ENCOUNTER 2024-12-10 22:24 | Inpatient (IN) | payer BC ==
[2024-12-10] MEDS ORDERED: LORazepam 2 MG/ML VIAL ONE (22:55)
[2024-12-10] MEDS ORDERED: NA CHLORIDE 0.9% 500 ML ONE (22:55)
[2024-12-10] MEDS ORDERED: NA CHLORIDE 0.9% 2,000 ML ONE (22:55)
[2024-12-10 23:12] LABS: Absolute Lymphocytes (CBC) 1.0 K/uL (0.7-4.9); Hematocrit 52.1 % (39.6-49.0); Hemoglobin 16.6 g/dL (13.6-17.9); MCH 23.8 pg (27.0-35.0); MCHC 31.9 g/dL (32.0-36.0); MCV 74.6 fL (80-100); MPV 8.7 fL (7.6-11.3); Nucleated RBC Absolute Count 0.0 (0-0); Nucleated Red Blood Cells % 0.1 % (0-0); RBC Red Blood Cell Count 6.98 M/uL (4.33-5.43); White Blood Count 16.10 thou/uL (4.3-10.9)
[2024-12-10 23:18] LABS: PT Prothrombin Time 13.1 SECONDS (10-13.0); Protime INR 1.16
[2024-12-10] MEDS ORDERED: METHYLPREDNISOLONE 125 MG INJ ONE (23:26)
[2024-12-10] MEDS ORDERED: IPRATROPIUM BROM 0.5MG/2.5ML ONE (23:26)
[2024-12-10] MEDS ORDERED: AZITHROMYCIN 500 MG INJ IVPB ONE (23:27)
[2024-12-10] MEDS ORDERED: FAMOTIDINE 20 MG/2 ML VIAL IV ONE (23:27)
[2024-12-10] MEDS ORDERED: FUROSEMIDE 20 MG/ 2ML VIAL ONE (23:27)
[2024-12-10] MEDS ORDERED: LEVALBUTEROL 1.25 MG/3 ML NEB ONE (23:27)
[2024-12-10] MEDS ORDERED: CEFTRIAXONE 2000 MG/VIAL ONE (23:27)
[2024-12-10] MEDS ORDERED: NA CHLORIDE 0.9% 250 ML ONE (23:28)
[2024-12-10 23:34] LABS: ALT/SGPT 21.0 U/L (16-61); AST/SGOT 23.0 U/L (15-37); Albumin 3.9 g/dL (3.4-5.0); Albumin/Globulin Ratio 1.1 (1.1-1.8); Alkaline Phosphatase 78.0 U/L (45-117); Anion Gap 9.2 mEq/L (5.0-15.0); BUN Blood Urea Nitrogen 13.0 mg/dL (7-18); Bilirubin Indirect, Calculated 1.2 mg/dL (0.2-0.8); Globulin 3.5 g/dL (2.3-3.5); Glucose Level 106.0 mg/dL (74-106); Magnesium 2.3 mg/dL (1.6-2.4); NT PRO-BNP 1342.0 pg/mL (<125); Potassium 3.2 mEq/L (3.5-5.1); Troponin High Sensitivity 21.2 pg/mL (<58.9)
[2024-12-10 23:54] LABS: Differential Total Cells Count 100
[2024-12-10 23:55] LABS: Anisocytosis 1+; Blood Morphology Comment NOTED (NOT SEEN); Segmented Neutrophils 90 % (40-80)
[2024-12-10 23:56] LABS: Influenza A Ag Negative; Influenza B Ag Negative; SARS-CoV-2 Antigen Rapid Res Negative (Negative)
--- NOTE | 2024-12-11 00:22 | EDPHYS ---
Physician Documentation [facility] Name: Hugo Guzman Age: 54 yrs Sex: Male : 1970 Arrival Date: 12/10/2024 Time: 22:24 Bed 8 Private MD: ED Physician Jack Adams HPI: 12/10 23:21 This 54 yrs old Male presents to ER via Ambulatory with complaints of Pain alysia All Over, pt was dx with Pneumonia at [facility] this morning, pt has not slept in 2 days. 23:21 The patient has shortness of breath at rest, with light activity. Onset: The alysia symptoms/episode began/occurred 5 day(s) ago. Duration: The symptoms are continuous, and are steadily getting worse. The patient's shortness of breath is aggravated by coughing, is alleviated by nothing, rest, sitting up. The patient or guardian reports cough, described as moderate, difficulty breathing, flu symptoms, arthralgias, low-grade fever. Modifying factors: The symptoms are alleviated by elevating head, remaining still, the symptoms are aggravated by activity, lying flat, talking. Severity of symptoms: At their worst the symptoms were moderate in the emergency department the symptoms have improved mildly. The patient or guardian reports airway noise. Historical: - PMHx: 22:58 Chronic obstructive lung disease; Congestive heart failure; Chronic back pain; br2 - PSHx: 22:58 Stented artery; PACEMAKER; br2 - Immunization history:: Adult Immunizations up to date. - Infectious Disease History:: Denies. - Social history:: Smoking status: Patient reports the use of cigarette tobacco products, smokes one pack cigarettes per day. Patient/guardian denies using alcohol, street drugs. ROS: 23:23 Constitutional: Negative for fever, chills, and weight loss, Eyes: Negative for injury, alysia pain, redness, and discharge, ENT: Negative for injury, pain, and discharge, Neck: Negative for injury, pain, and swelling, Cardiovascular: Negative for chest pain, palpitations, and edema, Abdomen/GI: Negative for abdominal pain, nausea, vomiting, diarrhea, and constipation, Back: Negative for injury and pain, : Negative for injury, bleeding, discharge, and swelling, MS/Extremity: Negative for injury and deformity, Skin: Negative for injury, rash, and discoloration, Neuro: Negative for headache, weakness, numbness, tingling, and seizure, Psych: Negative for depression, anxiety, suicide ideation, homicidal ideation, and hallucinations, Allergy/Immunology: Negative for hives, rash, and allergies, Endocrine: Negative for neck swelling, polydipsia, polyuria, polyphagia, and marked weight changes, Hematologic/Lymphatic: Negative for swollen nodes, abnormal bleeding, and unusual bruising, 23:23 Respiratory: Positive for cough, shortness of breath, wheezing, expiratory, 23:23 MS/extremity: Negative for acute changes, Exam: 23:23 Constitutional: This is a well developed, well nourished patient who is awake, alert, alysia and in no acute distress. Head/Face: Normocephalic, atraumatic. Eyes: Pupils equal round and reactive to light, extra-ocular motions intact. Lids and lashes normal. Conjunctiva and sclera are non-icteric and not injected. Cornea within normal limits. Periorbital areas with no swelling, redness, or edema. ENT: Nares patent. No nasal discharge, no septal abnormalities noted. Tympanic membranes are normal and external auditory canals are clear. Oropharynx with no redness, swelling, or masses, exudates, or evidence of obstruction, uvula midline. Mucous membranes moist. Neck: Trachea midline, no thyromegaly or masses palpated, and no cervical lymphadenopathy. Supple, full range of motion without nuchal rigidity, or vertebral point tenderness. No Meningismus. Chest/axilla: Normal chest wall appearance and motion. Nontender with no deformity. No lesions are appreciated. Cardiovascular: Regular rate and rhythm with a normal S1 and S2. No gallops, murmurs, or rubs. Normal PMI, no JVD. No pulse deficits. Abdomen/GI: Soft, non-tender, with normal bowel sounds. No distension or tympany. No guarding or rebound. No evidence of tenderness throughout. Back: No spinal tenderness. No costovertebral tenderness. Full range of motion. Male : Normal genitalia with no discharge or lesions. Skin: Warm, dry with normal turgor. Normal color with no rashes, no lesions, and no evidence of cellulitis. MS/ Extremity: Pulses equal, no cyanosis. Neurovascular intact. Full, normal range of motion., bilateral aka Neuro: Awake and alert, GCS 15, oriented to person, place, time, and situation. Cranial nerves II-XII grossly intact. Motor strength 5/5 in all extremities. Sensory grossly intact. Cerebellar exam normal. Normal gait. Psych: Awake, alert, with orientation to person, place and time. Behavior, mood, and affect are within normal limits. 23:23 ECG was reviewed by the Attending Physician. 23:23 Respiratory: the patient does not display signs of respiratory distress, Respirations: labored breathing, that is mild, Breath sounds: bronchial sounds, that are mild, decreased breath sounds, that are mild, rhonchi, that are mild, stridor, is not appreciated, Respiratory rate: 18 23:23 Musculoskeletal/extremity: DVT Exam: No signs of deep vein thrombosis. no pain, no swelling, no tenderness, negative Homans' sign noted on exam, no appreciated bluish discoloration, no erythema, no increased warmth, Vital Signs: 22:50 BP 108 / 76; Pulse 95; Resp 18 S; Temp 97.6; Pulse Ox 97% on R/A; Pain 10/10; br2 22:53 Weight 80.74 kg; kd3 08/04 00:07 BP 107 / 69; Pulse 97; Resp 18; Pulse Ox 97% on R/A; kd3 00:26 BP 107 / 69; Pulse 81; Resp 18; Pulse Ox 97% on NC; FiO2 2 %; km10 00:52 BP 92 / 57; Pulse 83; Resp 18; Pulse Ox 97% on R/A; kd3 01:15 BP 108 / 77; Pulse 84; Resp 20; Pulse Ox 98% on 2 lpm NC; kd3 12/10 22:50 Pain Scale: Adult br2 MDM: 12/10 22:39 Medical Screening Exam initiated alysia 23:26 Antibiotic administration: Rocephin and Zithromax given. Differential Diagnosis: [facility] Obstructed Airway Bronchitis Influenza Upper Respiratory Infection Sinusitis Pharyngitis Otitis Media Allergic Rhinitis Asthma Exacerbation Viral Syndrome Pneumonia. Data reviewed: vital signs, nurses notes, lab test result(s), EKG. Consideration of Admission/Observation Escalation of care including admission/observation considered. I considered the following discharge prescriptions or medication management in the emergency department Medications were administered in the Emergency Department. See MAR. Independent interpretation of the following test(s) in the Emergency Department EKG: See my EKG interpretation above. Test considered but Not performed: CT: NO CT CHEST. Historians other than the Patient: Family Member: SIGN OTHER. Care significantly affected by the following chronic conditions: Hypertension, Congestive Heart Failure, Chronic Obstructive Pulmonary Disease, CBP , SUBSTANCE ABUSE. Counseling: I had a detailed discussion with the patient and/or guardian regarding the historical points, exam findings, and any diagnostic results supporting the discharge/admit diagnosis, lab results, radiology results, the need for further work-up and treatment in the hospital. 12/11 00:14 Post IV fluid administration reassessment for Sepsis: Client not prescribed the 30 alysia mL/kg IVF due to: Lungs: Rhonchi noted. HX OF CHF. 12/10 22:42 Order name: Basic Metabolic Panel; Complete Time: 00:12 [facility] 12/10 22:42 Order name: CBC with Diff; Complete Time: 00:12 [facility] 12/10 22:42 Order name: LFT's; Complete Time: 00:12 [facility] 12/10 22:42 Order name: Magnesium; Complete Time: 00:12 [facility] 12/10 22:42 Order name: NT PRO-BNP; Complete Time: 00:12 [facility] 12/10 22:42 Order name: PT-INR; Complete Time: 00:12 [facility] 12/10 22:42 Order name: Troponin HS; Complete Time: 00:12 [facility] 12/10 22:42 Order name: Blood Culture Adult (2) [facility] 12/10 22:42 Order name: Lactate w/ 2H reflex if indic.; Complete Time: 00:12 [facility] 12/10 22:42 Order name: UA Rfx Rober Cult if indicated [facility] 12/10 23:23 Order name: COVID-19 Ag + Flu A+B Ag; Complete Time: 00:12 [facility] 12/10 23:28 Order name: Manual Differential; Complete Time: 00:12 EDMS 12/10 22:42 Order name: Chest Pa And Lat (2 Views) XRAY 12/10 22:42 Order name: Cardiac monitoring; Complete Time: 23:02 [facility] 12/10 22:42 Order name: EKG - Nurse/Tech; Complete Time: 23:03 [facility] 12/10 22:42 Order name: IV Saline Lock; Complete Time: 23:02 [facility] 12/10 22:42 Order name: Labs collected and sent; Complete Time: 23:02 [facility] 12/10 22:42 Order name: O2 Per Protocol; Complete Time: 23: [facility] 12/10 22:42 Order name: O2 Sat Monitoring; Complete Time: 23: [facility] EC/03 23:23 Rate is 87 beats/min. Rhythm is regular. QRS [place] is Normal. [place] interval is normal. QRS alysia interval is normal. QT interval is normal. No Q waves. T waves are Normal. No ST changes noted. Clinical impression: Abnormal EKG without significant change and No evidence of ischemia. Interpreted by me. Reviewed by me. Administered Medications: : Drug: NS 0.9% IV (30 ml/kg) 30 ml/kg IV at bolus once; Sepsis Protocol; to be given as kd3 a bolus over 90 minutes Route: IV; Rate: bolus; Site: right forearm; :02 Drug: Ativan IVP 1 mg IVP once Route: IVP; Site: right forearm; 3 12/11 00:27 Follow up: Response: No adverse reaction; Marked relief of symptoms; Anxiety decreased [facility] 12/10 23:16 Not Given (Duplicate Order): ativan1 mg IVP once [facility] 23:50 Drug: Levalbuterol Inhalation 2.5 mg Inhalation once Route: Inhalation; 3 12/11 00:27 Follow up: Response: No adverse reaction [facility] 12/10 23:50 Drug: Ipratropium Inhalation Aerosol 0.5 mg Inhalation once Route: Inhalation; kd3 12/11 00:28 Follow up: Response: No adverse reaction [facility] 12/10 23:50 Drug: Rocephin IV 2 grams IV at per protocol once; Given slow IV push per Esphion kd3 instructions Route: IV; Rate: per protocol; Site: right forearm; 12/11 00:27 Follow up: Response: No adverse reaction; IV Status: Completed infusion [facility] 12/10 23:51 Drug: Zithromax IVPB 500 mg IVPB once over 1 hrs; mix in 250 mL NS Route: IVPB; Infused kd3 Over: 1 hrs; Site: right forearm; 23:51 Drug: Famotidine IVP 20 mg IVP once; dilute with 10 mL 0.9% NaCl; give over 2 minutes kd3 Route: IVP; Site: right forearm; 12/11 00:27 Follow up: Response: No adverse reaction [facility] 12/10 23:51 Drug: MethylPrednisoLONE IVP 125 mg IVP once Route: IVP; Site: right forearm; kd3 12/11 00:27 Follow up: Response: No adverse reaction km10 12/10 23:51 Drug: Furosemide IVP 20 mg IVP once; give over 2 minutes Route: IVP; Site: right kd3 forearm; 12/11 00:27 Follow up: Response: No adverse reaction km10 Disposition Summary: 12/11/24 00:21 Hospitalization Ordered Notes: Hospitalization Status: Inpatient Admission alysia Provider: Ruchi Maldonado cha Location: Telemetry/MedSurg (Inpatient) alysia Condition: Fair alysia Problem: new alysia Symptoms: have improved alysia Bed/Room Type: Standard alysia Room Assignment: 428(12/11/24 01:00) rv1 Diagnosis - Pneumonia due to other specified bacteria alysia - Chronic combined systolic (congestive) and diastolic (congestive) heart failure alysia - COPD/ Chronic obstructive pulmonary disease with (acute) exacerbation alysia - Dyspnea alysia - Hypoxemia alysia - Tobacco abuse counseling alysia - Tobacco use alysia - Elevated white blood cell count alysia Forms: - Medication Reconciliation Form alysia - SBAR form alysia - Leadership Thank You Letter alysia Signatures: Dispatcher [employer] EDJack Miller MD MD cha Doucette, Kyli RN RN kd3 Nikki Garrett rv1 Fadia Kruse RN RN br2 Meghna Win RN km10 Corrections: (The following items were deleted from the chart) 12/10 22:42 22:42 BASIC METABOLIC PANEL+C.LAB.BRZ ordered. EDMS EDMS 22:42 22:42 CBC+H.LAB.BRZ ordered. EDMS EDMS 22:42 22:42 HEPATIC FUNCTION+C.LAB.BRZ ordered. EDMS EDMS 22:42 22:42 MAGNESIUM+C.LAB.BRZ ordered. EDMS EDMS 22:42 22:42 PROBNP+C.LAB.BRZ ordered. EDMS EDMS 22:42 22:42 PROTIME (+INR)+COAG.LAB.BRZ ordered. EDMS EDMS 22:42 22:42 Troponin High Sensitivity+C.LAB.BRZ ordered. EDMS EDMS 22:42 22:42 BLOOD CULTURE*+BA.LAB.BRZ ordered. EDMS EDMS 22:42 22:42 LACTATE+C.LAB.BRZ ordered. EDMS EDMS 22:42 UA Rfx Rober Cult if indicated+U.LAB.BRZ ordered. EDMS EDMS 22:42 Chest Pa And Lat (2 Views)+RAD.RAD.BRZ ordered. EDMS EDMS 12/11 01:00 00:21 alysia rv1
--- NOTE | 2024-12-11 00:22 | ER ---
Nurse's Notes [facility] Name: Hugo Guzman Age: 54 yrs Sex: Male : 1970 Arrival Date: 12/10/2024 Time: 22:24 Bed 8 Private MD: Diagnosis: Pneumonia due to other specified bacteria;Chronic combined systolic (congestive) and diastolic (congestive) heart failure;COPD/ Chronic obstructive pulmonary disease with (acute) exacerbation;Dyspnea;Hypoxemia;Tobacco abuse counseling;Tobacco use;Elevated white blood cell count Presentation: 12/10 22:50 Chief complaint: Patient states: PT STATES HE WAS DX WITH PNEUMONIA ON WEDNESDAY br2 ([facility]) AND TODAY ([facility]). PT STATES HE IS FEELING ANXIOUS AND ISN'T ABLE TO REST. PT STATES HE FEELS LIKE HE IS HAVING WITHDRAWS FROM [place]....BUT HAS TAKEN IT TODAY. Coronavirus screen: Client denies travel out of the [place] in the last 14 days. Ebola Screen: Patient denies exposure to infectious person. Initial Sepsis Screen: Does the patient meet any 2 criteria? No. Patient's initial sepsis screen is negative. Does the patient have a suspected source of infection? No. Patient's initial sepsis screen is negative. Risk Assessment: Do you want to hurt yourself or someone else? Patient reports no desire to harm self or others. Onset of symptoms is unknown. 22:50 Method Of Arrival: Ambulatory br2 22:50 Acuity: VAIBHAV 3 br2 Triage Assessment: 22:58 General: Appears uncomfortable, Behavior is anxious, restless. br2 Historical: - PMHx: 22:58 Chronic obstructive lung disease; Congestive heart failure; Chronic back pain; br2 - PSHx: 22:58 Stented artery; PACEMAKER; br2 - Immunization history:: Adult Immunizations up to date. - Infectious Disease History:: Denies. - Social history:: Smoking status: Patient reports the use of cigarette tobacco products, smokes one pack cigarettes per day. Patient/guardian denies using alcohol, street drugs. Screenin/04 00:08 [facility] ED Fall Risk Assessment (Adult) History of falling in the last 3 months, kd3 including since admission No falls in past 3 months (0 pts) Confusion or Disorientation No (0 pts) Intoxicated or Sedated No (0 pts) Impaired Gait No (0 pts) Mobility Assist Device Used No (0 pt) Altered Elimination No (0 pt) Score/Fall Risk Level 0 - 2 = Low Risk Maintained a safe environment. Abuse screen: Denies threats or abuse. Denies injuries from another. Nutritional screening: No deficits noted. Tuberculosis screening: No symptoms or risk factors identified. Assessment: 00:08 General: Appears in no apparent distress. Behavior is calm, cooperative. Pain: Denies kd3 pain. Neuro: Level of Consciousness is awake, alert, obeys commands, Oriented to person, place, time, situation. Cardiovascular: Patient's skin is warm and dry. Respiratory: Airway is patent Trachea midline Respiratory effort is even, unlabored, Respiratory pattern is regular, symmetrical. Vital Signs: 12/10 22:50 BP 108 / 76; Pulse 95; Resp 18 S; Temp 97.6; Pulse Ox 97% on R/A; Pain 10/10; br2 22:53 Weight 80.74 kg; kd3 12/11 00:07 BP 107 / 69; Pulse 97; Resp 18; Pulse Ox 97% on R/A; kd3 00:26 BP 107 / 69; Pulse 81; Resp 18; Pulse Ox 97% on NC; FiO2 2 %; km10 00:52 BP 92 / 57; Pulse 83; Resp 18; Pulse Ox 97% on R/A; kd3 01:15 BP 108 / 77; Pulse 84; Resp 20; Pulse Ox 98% on 2 lpm NC; kd3 12/10 22:50 Pain Scale: Adult br2 ED Course: 12/10 22:29 Patient arrived in ED. gm2 22:39 Jack Adams MD is Attending Physician. alysia 22:45 Xena Puri, CLOVIS is Primary Nurse. kd3 22:58 Triage completed. br2 22:58 Arm band placed on right wrist. br2 23:02 Inserted saline lock: 20 gauge in right forearm, using aseptic technique. Blood kd3 collected. Flushed with 10 mL NS. 23:03 Lactate w/ 2H reflex if indic. Sent. kd3 23:03 Blood Culture Adult (2) Sent. kd3 23:03 Basic Metabolic Panel Sent. kd3 23:03 CBC with Diff Sent. kd3 23:03 LFT's Sent. kd3 23:03 Magnesium Sent. kd3 23:03 NT PRO-BNP Sent. kd3 23:03 PT-INR Sent. kd3 23:03 Troponin HS Sent. 3 23:03 Initial lab(s) drawn, by ED staff, sent to lab. First set of blood cultures drawn by 3 me, Second set of blood cultures drawn by ED staff, EKG done, by airplane technician. reviewed by Jack Adams MD. 23:07 Chest Pa And Lat (2 Views) XRAY In Process Unspecified. EDMS 23:51 COVID-19 Ag + Flu A+B Ag Sent. [facility] 12/11 00:14 Ruchi Maldonado MD is Hospitalizing Provider. [facility] 00:25 Patient has correct armband on for positive identification. Placed in gown. Bed in low km10 position. Call light in reach. Side rails up X2. Adult w/ patient. Provided Education on: plan of care. Client placed on continuous cardiac and pulse oximetry monitoring. NIBP monitoring applied. urban forester on. Door closed. Noise minimized. Lights dimmed. Warm blanket given. Pillow given. 00:25 No provider procedures requiring assistance completed. Oxygen administration via nasal km10 cannula \T\ 2L/min Response to oxygen therapy: symptoms improved. 01:40 Patient admitted, IV remains in place. kd3 Administered Medications: 12/10 23:02 Drug: NS 0.9% IV (30 ml/kg) 30 ml/kg IV at bolus once; Sepsis Protocol; to be given as kd3 a bolus over 90 minutes Route: IV; Rate: bolus; Site: right forearm; 23:02 Drug: Ativan IVP 1 mg IVP once Route: IVP; Site: right forearm; [facility] 12/11 00:27 Follow up: Response: No adverse reaction; Marked relief of symptoms; Anxiety decreased [facility] 12/10 23:16 Not Given (Duplicate Order): ativan1 mg IVP once [facility] 23:50 Drug: Levalbuterol Inhalation 2.5 mg Inhalation once Route: Inhalation; 12/11 00:27 Follow up: Response: No adverse reaction [facility] 12/10 23:50 Drug: Ipratropium Inhalation Aerosol 0.5 mg Inhalation once Route: Inhalation; [facility] 12/11 00:28 Follow up: Response: No adverse reaction [facility] 12/10 23:50 Drug: Rocephin IV 2 grams IV at per protocol once; Given slow IV push per pharmarcy kd3 instructions Route: IV; Rate: per protocol; Site: right forearm; 12/11 00:27 Follow up: Response: No adverse reaction; IV Status: Completed infusion [facility] 12/10 23:51 Drug: Zithromax IVPB 500 mg IVPB once over 1 hrs; mix in 250 mL NS Route: IVPB; Infused kd3 Over: 1 hrs; Site: right forearm; 23:51 Drug: Famotidine IVP 20 mg IVP once; dilute with 10 mL 0.9% NaCl; give over 2 minutes kd3 Route: IVP; Site: right forearm; 12/11 00:27 Follow up: Response: No adverse reaction 10 12/10 23:51 Drug: MethylPrednisoLONE IVP 125 mg IVP once Route: IVP; Site: right forearm; kd3 12/11 00:27 Follow up: Response: No adverse reaction [facility] 12/10 23:51 Drug: Furosemide IVP 20 mg IVP once; give over 2 minutes Route: IVP; Site: right kd3 forearm; 12/11 00:27 Follow up: Response: No adverse reaction [facility] Medication: 00:08 VIS not applicable for this client. kd3 Outcome: 00:21 Decision to Hospitalize by Provider. alysia 01:15 Condition: stable kd3 01:40 Admitted to Med/surg accompanied by tech, via stretcher, kd3 01:40 Discharge instructions given to patient, family, Instructed on the need for admit, Demonstrated understanding of instructions, 01:40 Patient left the ED. kd3 Signatures: Dispatcher [employer] EDJack Miller MD MD cha Doucette, Kyli RN RN kd3 Noa Art 2 Fadia Kruse RN RN br2 Meghna Win RN RN km10
[2024-12-11 00:29] LABS: Urine Microscopic Reflex YN NO UMIC
[2024-12-11] MEDS ORDERED: ACETAMINOPHEN 650MG/RECT SUPP PR PRN (01:29)
--- NOTE | 2024-12-11 01:30 | P.HP ---
Certification for Inpatient Patient admitted to: Inpatient With expected LOS: >2 Midnights Patient will require the following post-hospital care: None Practitioner: I am a practitioner with admitting privileges, knowledge of patient current condition, hospital course, and medical plan of care. Services: Services provided to patient in accordance with Admission requirements found in Title 42 Section 412.3 of the Code of Federal Regulations Patient History Date of Service: 12/11/24 Reason for admission: Community-acquired pneumonia. History of Present Illness: Patient is a 54-year-old male with past medical history of COPD, pancreatitis, CHF, chronic back pain, brought to the ER tonight due to generalized body weakness, shortness of breath, nonproductive cough, and chills. According to patient present at bedside, she states patient has not been feeling well for the past 5 days beginning on Wednesday this week, she states patient has been extremely weak, poor appetite, chills, with associated shortness of breath, no chest pain, no peripheral edema. She states patient went to outpatient ER here in [place] on Wednesday, he was told that he has pneumonia and instructed to go to the hospital, but patient went home. She states patient shortness of breath, weakness, malaise, loss of energy, chills progressively worsened today prompting patient to visit [facility] in [place], was told that he has pneumonia and will need to be admitted, patient refused admission and went home. states while at home, he was more anxious, more chills,with associated shortness of breath but no chest pain, and he was then brought to the ER. She states patient has not been able to sleep for the past 2 days, and has complete loss of appetite. Upon arrival to ER, patient received Solu-Medrol 125, DuoNeb treatment, Lasix 20 mg p.o., azithromycin 500 mg IV, and Rocephin 2 g IV. During admission assessment, patient was awake alert and ready x 3, extremely weak, denies of shortness of breath at this time while on 3 L of oxygen, denies of any chest pain. Patient does not have any signs and symptoms of CHF exacerbation at this time. Bilateral lungs with coarse scattered crackles, respirations even and unlabored. Patient does not use oxygen at home. She states patient has chronic back pain, and visit pain management clinic, currently taking [place] four times a day, dose unknown at this time. Allergies levofloxacin [From Levaquin] Allergy (Verified 05/26/19 23:44) Itching/Hives/Rash Home Medications: Hydrocodone Bit/Acetaminophen [Hydrocodon-Acetaminophn 10-325] 1 tab PO Q6HR 05/26/19 Omeprazole 40 mg PO DAILY 05/26/19 Testosterone Cypionate [Testone Cik] 1 mg IM SEECOM 05/26/19 Amoxicillin/Potassium Clav [Amox-Clav 500-125 mg Tablet] 1 each PO TID 12/11/24 Bumetanide 2 mg PO BID 12/11/24 Clopidogrel Bisulfate [Plavix] 75 mg PO DAILY 12/11/24 Digoxin [Lanoxin] 0.125 mg PO DAILY 12/11/24 Empagliflozin [Jardiance] 12/11/24 Empagliflozin [Jardiance] 12/11/24 Empagliflozin [Jardiance] 10 mg PO DAILY 12/11/24 Furosemide 80 mg PO DAILY 12/11/24 Methylprednisolone [Medrol dosepack] 4 mg PO TID 12/11/24 Ondansetron [Zofran] 4 mg PO Q6H PRN 12/11/24 Potassium Gluconate [Potassium] 99 mg PO DAILY 12/11/24 Sacubitril/Valsartan [Entresto 24 mg-26 mg Tablet] 24 mg PO DAILY 12/11/24 - Past Medical/Surgical History -: Coronary artery disease-2019 -: Pancreatitis -: COPD -: CHF. -: Chronic Back Pain -: Pancreatic Surgery -: Coronary artery stents x 2 (according to patient while). -: Pacemaker - Family History Father -: Lung disease, Diabetes, Other (see notes) Notes: CHF, COPD Mother -: Hypertension, Other (see notes) Notes: High Cholesterol - Social History Smoking Status: Current every day smoker Patient receptive to therapy: No Alcohol use: No CD- Drugs: No Caffeine use: Yes Place of Residence: Home Review of Systems 10-point ROS is otherwise unremarkable General: Chills, Weakness (Generalized body weakness.) Respiratory: Cough (Nonproductive), Shortness of Breath Neurological: Weakness Physical Examination - Physical Exam General: Alert, Oriented x3, Cooperative HEENT: Atraumatic, Normocephalic, PERRLA, Other (Dry mucous membrane.), Sclerae nonicteric Neck: Supple, No LAD, Without JVD or thyroid abnormality Respiratory: Other (Scattered bilateral crackles, rhonchi.) Cardiovascular: No edema, Normal pulses, Regular rate/rhythm, Normal S1 S2, No gallops, No rubs, No murmurs Capillary refill: <2 Seconds Gastrointestinal: Normal bowel sounds, Soft and benign, Non-distended, W/out hepatomegaly, No ascites, No tenderness, No masses, No rebound, No guarding Musculoskeletal: No clubbing, No swelling, No contractures, No erythema, No tenderness, No warmth Integumentary: No rashes, No breakdown, No significant lesion, No tenderness/swelling, No erythema, No warmth, No cyanosis Neurological: Normal speech, Normal tone, Sensation intact, Normal reflexes 2+, Normal affect, Other (Generalized body weakness.) External genitalia: Non-tender (According to patient) - Studies Laboratory Data (last 24 hrs) 12/10/24 12/10/24 12/10/24 23:00 23:00 23:00 WBC 16.10 H Hgb 16.6 Hct 52.1 H Plt Count 185 PT 13.1 H INR 1.16 Sodium 135 L Potassium 3.2 L BUN 13 Creatinine 1.32 H Glucose 106 Magnesium 2.3 Total Bilirubin 1.8 H AST 23 ALT 21 Alkaline Phosphatase 78 Male Exam - Male Exam Inguinal exam: No hernias Assessment and Plan - Plan Patient is a 54-year-old male admitted to inpatient with diagnosis of community- acquired pneumonia, generalized body weakness, and ORIN. Patient denies of any associated chest pain at this time. No presenting symptoms or sign of CHF exacerbation at this time. Patient presenting symptoms appears to be more related to his acute pneumonia. (1)Community-acquired pneumonia. Patient received initial dose of ceftriaxone 2 g, and azithromycin 500 mg in ER. -Ceftriaxone 1 g IV every 12 hours. -Azithromycin 500 mg IV daily. -Order for sputum culture. -DuoNeb every 6 hours. -Prednisone 20 mg p.o. daily. -Oxygen supplement 3 L titrate to maintain O2 saturation above 95%. -Consult simulation tech Dr. Loving. (2)Chronic CHF. -Continue home Entresto 25 mg-26 mg p.o. daily. -Continue home furosemide 80 mg p.o. daily. -Continue digoxin 0.125 mg p.o. daily. -Continue Bumex 2 mg p.o. twice daily. -Continue Jardiance 10 mg p.o. daily. (3)Chronic GERD. - Continue omeprazole 40 mg p.o. daily. (4)Explained the entire treatment plan to the patient, and present at the bedside, solicit questions answered and voiced understanding. Discharge Plan: Home Plan to discharge in: Greater than 2 days - Advance Directives Does patient have a Living Will: No Does patient have a Durable POA for Healthcare: No - Code Status/Comfort Care Code Status Assessed: Yes Code Status: Full Code Critical Care: No Time Spent Managing Pts Care (In Minutes): 55
[2024-12-11 02:10] VITALS: BMI 24.1
[2024-12-11] MEDS: D5 0.45 NS 1,000 ML IV SCH (02:33)
[2024-12-11] MEDS: HYDROCODONE/APAP 7.5/325 MG TAB PO PRN (05:22)
[2024-12-11] MEDS: LORazepam 2 MG/ML VIAL IV ONE (05:30)
--- NOTE | 2024-12-11 06:00 | RAD REPORT ---
TIME OF STUDY: 12/10/2024 10:42 PM CDT REASON FOR EXAM: PRODUCTIVE COUGH COMPARISON: None. FINDINGS: PA and lateral chest radiographs, 2 views, were obtained. Lungs: The lungs are adequately inflated. Diffuse interstitial markings are noted with scattered luce ncies, consistent with emphysematous/fibrotic changes. Hazy opacities are noted over the lung bases. Tubular lucencies are noted, which could be consistent with bronchiectasis. Superimposed pneum onia cannot be completely excluded.. Pleura: No pneumothorax. There is no pleural effusion. Heart and Mediastinum: Normal cardiomediastinal silhouette and great vessels.. A left subclavian 3- lead biventricular AICD/pacemaker is noted. 2 mitral clips are noted. Bones: No acute bony abnormality.. IMPRESSION: 1. Diffuse interstitial, patchy and hazy airspace opacities. This is consistent with emphysematous/fi brotic changes. Superimposed pneumonia cannot be completely excluded. Electronically signed by: Austyn Hawthorne MD 12/10/2024 11:22 PM CDT RP Due to temporary technical issues with the PACS/HeyKiki reporting system, reports are being kane d by the in-house radiologist without review as a courtesy to ensure prompt reporting the interpreting radiologist is fully responsible for the content of the report. Transcribed Date/Time: 12/11/2024 5:59 AM
[2024-12-11] MEDS: ALBUTEROL 2.5 MG/3 ML NEB SOL NEB SCH (07:47)
[2024-12-11] MEDS: IPRATROPIUM BROM 0.5MG/2.5ML NEB SCH (07:47)
[2024-12-11] MEDS: HEPARIN 5000 UNIT/ML 1 ML VIAL SQ SCH (09:00)
[2024-12-11] MEDS ORDERED: BUMETANIDE 1 MG TABLET PO SCH (09:00)
[2024-12-11] MEDS ORDERED: HOME MED 1 EA UNK (Furosemide [Furosemide] 80 MG Tablet) PO SCH (09:00)
[2024-12-11] MEDS: CEFTRIAXONE 1,000 MG in NA CHLORIDE 0.9% 50 ML IVPB SCH ×2 (09:00→09:33)
[2024-12-11] MEDS ORDERED: OMEPRAZOLE PO SCH (09:00)
[2024-12-11] MEDS ORDERED: SACUBITRIL/VALSARTAN 24/26 MG TAB PO SCH (09:00)
[2024-12-11] MEDS: DIGOXIN 0.125 MG TABLET PO SCH (09:18)
[2024-12-11] MEDS: PANTOPRAZOLE 40MG TABLET PO SCH (09:18)
[2024-12-11] MEDS: POTASSIUM CL SA 10 MEQ TAB PO ONE (09:18)
[2024-12-11] MEDS: CLOPIDOGREL 75 MG TABLET PO SCH (09:18)
[2024-12-11] MEDS: ONDANSETRON 4 MG/2 ML VIAL IV PRN (16:33)
[2024-12-11] MEDS: HYDROCODONE/APAP 10/325 TAB PO PRN (17:16)
--- NOTE | 2024-12-11 17:16 | P.PN ---
Date of Service: 12/11/24 seen on rounds late this morning reports improvement in his breathing. denies fever states his primary issue today is his pain medication - states he is getting much less than what he gets at home. asking for morphine ER - states he used to get this script, but pharmacies stopped stocking it, so was switched to norco [employer] reviewed - sees pain clinic. gets norco 10s QID - dose adjusted - was getting 7.5s
[2024-12-11] MEDS ORDERED: FLEET ENEMA ADULT PR PRN (20:08)
[2024-12-11] MEDS: AZITHROMYCIN IV 500 MG in NA CHLORIDE 0.9% 250 ML IVPB SCH (20:34)
[2024-12-11] MEDS: DOCUSATE NA 100 MG CAP PO SCH (20:35)
[2024-12-11] MEDS: MELATONIN 5 MG TABLET PO PRN (21:31)
[2024-12-11] MEDS: FLEET ENEMA ADULT PR ONE (21:35)
[2024-12-12 05:18] LABS: Absolute Lymphocytes (CBC) 2.1 K/uL (0.7-4.9); Hematocrit 44.9 % (39.6-49.0); Hemoglobin 14.1 g/dL (13.6-17.9); MCH 23.6 pg (27.0-35.0); MCHC 31.4 g/dL (32.0-36.0); MCV 75.3 fL (80-100); MPV 8.8 fL (7.6-11.3); Nucleated RBC Absolute Count 0.0 (0-0); Nucleated Red Blood Cells % 0.1 % (0-0); RBC Red Blood Cell Count 5.96 M/uL (4.33-5.43); White Blood Count 12.30 thou/uL (4.3-10.9)
[2024-12-12 05:42] LABS: ALT/SGPT 19.0 U/L (16-61); AST/SGOT 15.0 U/L (15-37); Albumin 3.0 g/dL (3.4-5.0); Albumin/Globulin Ratio 1.0 (1.1-1.8); Alkaline Phosphatase 55.0 U/L (45-117); Anion Gap 8.1 mEq/L (5.0-15.0); BUN Blood Urea Nitrogen 15.0 mg/dL (7-18); Globulin 2.9 g/dL (2.3-3.5); Glucose Level 134.0 mg/dL (74-106); HDL Cholesterol 30.0 mg/dL (40-60); LDL Cholesterol, Calculated 13.0 mg/dL (<130); LDL Cholesterol,Calc NonReport 13.0; Magnesium 2.1 mg/dL (1.6-2.4); NT PRO-BNP 1410.0 pg/mL (<125); Potassium 3.1 mEq/L (3.5-5.1)
[2024-12-12] MEDS ORDERED: HOME MED 1 EA UNK (Empagliflozin [Jardiance] 10 MG Tablet) PO SCH (09:00)
[2024-12-12] MEDS: POTASSIUM CL SA 10 MEQ TAB PO ONE (10:06)
[2024-12-12] MEDS: AMOX/K CLAV 875 MG TAB PO SCH (10:07)
[2024-12-12] MEDS: predniSONE 20 MG TAB PO SCH (10:07)
[2024-12-12] MEDS: DULERA 200/5 (MOMETASONE/FORMOTEROL) INHALER IH SCH (10:09)
[2024-12-12 12:16] VITALS: BP 104/61; TEMP 98.4
--- NOTE | 2024-12-12 12:30 | P.CNS ---
Date of Consult: 12/12/24 Reason for Consult: COPD exacerbation Chief Complaint: Shortness of breath History of Present Illness: Patient is 54 years of age active smoker history of COPD apparently got worse on Wednesday started having worsening shortness of breath cough congestion and was admitted to the hospital currently doing a little better patient does not take any bronchodilators at home Allergies levofloxacin [From Levaquin] Allergy (Verified 05/26/19 23:44) Itching/Hives/Rash Home Medications: Hydrocodone Bit/Acetaminophen [Hydrocodon-Acetaminophn 10-325] 1 tab PO Q6HR 05/26/19 Omeprazole 40 mg PO DAILY 05/26/19 Testosterone Cypionate [Testone Cik] 1 mg IM SEECOM 05/26/19 Amoxicillin/Potassium Clav [Amox-Clav 500-125 mg Tablet] 1 each PO TID 12/11/24 Bumetanide 2 mg PO BID 12/11/24 Clopidogrel Bisulfate [Plavix] 75 mg PO DAILY 12/11/24 Digoxin [Lanoxin] 0.125 mg PO DAILY 12/11/24 Empagliflozin [Jardiance] 10 mg PO DAILY 12/11/24 Empagliflozin [Jardiance] 10 mg PO DAILY 12/11/24 Furosemide 80 mg PO DAILY 12/11/24 Methylprednisolone [Medrol dosepack] 4 mg PO TID 12/11/24 Ondansetron [Zofran] 4 mg PO Q6H PRN 12/11/24 Potassium Gluconate [Potassium] 99 mg PO DAILY 12/11/24 Sacubitril/Valsartan [Entresto 24 mg-26 mg Tablet] 24 mg PO DAILY 12/11/24 - Past Medical/Surgical History Diabetic: No -: Coronary artery disease-2019 -: Pancreatitis -: COPD -: CHF. -: Chronic Back Pain -: Essential hypertension. -: Chronic kidney disease. -: Pancreatic Surgery -: Coronary artery stents x 2 (according to patient while). -: Pacemaker - Family History Father Medical History: Lung disease, Diabetes, Other (see notes) Notes: CHF, COPD Mother Medical History: Hypertension, Other (see notes) Notes: High Cholesterol - Social History Smoking Status: Current every day smoker Alcohol use: No CD- Drugs: No Caffeine use: Yes Place of Residence: Home Review of Systems General: Weakness Respiratory: Cough, Shortness of Breath Physical Examination Temp Pulse Resp BP Pulse Ox 98.4 F 102 H 16 104/61 96 12/12/24 12:00 12/12/24 12:00 12/12/24 12:00 12/12/24 12:00 12/12/24 12:00 General: Alert, Oriented x3 Neck: Supple Respiratory: Crackles/rales, Expiratory wheezes Cardiovascular: No edema, Regular rate/rhythm, Normal S1 S2 Gastrointestinal: Normal bowel sounds, Soft and benign - Problems (1) COPD with acute exacerbation Current Visit: No Status: Acute Plan: Patient is 54 years of age heavy 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
[2024-12-12 12:51] VITALS: O2SAT 96
[2024-12-12] MEDS: FUROSEMIDE 20 MG/ 2ML VIAL IV ONE (12:51)
--- NOTE | 2024-12-12 13:06 | RAD REPORT ---
EXAMINATION: CT CHEST WITHOUT CONTRAST CLINICAL INDICATION: Possible underlying pulmonary fibrosis TECHNIQUE: Routine CT scan of the chest without intravenous contrast. One or more of the following do se reduction techniques were used: Automated exposure control, adjustment of the mA and/or kV according to patient size, and/or iterative reconstruction. Unless otherwise specified, incidental fi ndings do not require dedicated imaging follow-up. COMPARISON: No prior exam. FINDINGS: LOWER NECK: Visualized thyroid gland and soft tissues are normal. LUNGS: There is extensive pulmonary fibrosis noted with bullous emphysematous changes also present. N oncalcified 9 mm nodule in the right upper lobe laterally noted. PLEURA: No pleural effusion. No pneumothorax. . MEDIASTINUM AND LYMPH NODES: Mildly enlarged mediastinal and hilar lymph nodes, favored to be reactiv e. Pacer device noted. OSSEOUS STRUCTURES AND CHEST WALL: Intact. UPPER ABDOMEN: No significant abnormalities. IMPRESSION: Advanced pulmonary fibrosis and emphysematous changes are noted. 9 mm nodule is present in the right upper lobe laterally. Recommend follow-up CT chest in 6 months to monitor based on risk factors. Examination limited by lack of IV contrast.
--- NOTE | 2024-12-13 10:22 | ECHO ---
HEIGHT: 6 ft 0 in WEIGHT: 178 lb 0 oz DATE OF STUDY: 12/12/[address]: Jomar Loving MD 2-DIMENSIONAL: YES M.MODE: YES DOPPLER: YES COLOR FLOW: YES TDS: YES PORTABLE: DEFINITY: BUBBLE STUDY: DIAGNOSIS: HISTORY OF CONGESTIVE FAILURE CARDIAC HISTORY: CATHERIZATION: SURGERY: PROSTHETIC VALVE: PACEMAKER: MEASUREMENTS (cm) DIASTOLIC (NORMALS) SYSTOLIC (NORMALS) IVSd 1.3 (0.6-1.2) LA Diam 4.4 (1.9-4.0) LVEF 25-30% LVIDd 6.2 (3.5-5.7) LVIDs 4.9 (2.0-3.5) %FS 20% LVPWd 1.2 (0.6-1.2) Ao Diam 3.2 (2.0-3.7) 2 DIMENSIONAL ASSESSMENT: RIGHT ATRIUM: ENLARGED LEFT ATRIUM: NORMAL RIGHT VENTRICLE: MILDLY DILATED, PACEMAKER LEAD LEFT VENTRICLE: MODERATELY DILATED TRICUSPID VALVE: MODERATE TRICUSPID REGURGITATION MITRAL VALVE: CLIP SEEN, MILD MITRAL REGURGITATION PULMONIC VALVE: NORMAL AORTIC VALVE: NORMAL PERICARDIAL EFFUSION: NONE AORTIC ROOT: NORMAL LEFT VENTRICULAR WALL MOTION: SEVERE GLOBAL HYPOKINESIS DOPPLER/COLOR FLOW: DIASTOLIC DYSFUNCTION COMMENTS: 1. SEVERELY REDUCED LEFT VENTRICULAR SYSTOLIC FUNCTION, EJECTION FRACTON 25-30%, SEVERE GLOBAL HYPOKINESIS 2. MITRAL VALVE CLIP WITH MILD MITRAL REGURGITATION 3. MODERATE PULMONARY HYPERTENSION (RIGHT VENTRICULAR SYSTOLIC PRESSURE 55-60 mmHg) 4. ELEVATED FILLING PRESSURE (RIGHT ATRIAL PRESSURE GREATER THAN 20 mmHg) TECHNOLOGIST: DAVID PRESCOTT
== END 2024-12-12 17:50 | disposition home or self-care (01) | DRG 190 ==
LOC: ER 22:24 → 4TH 12-11 01:25
PROVIDERS: ADMIT Hospitalist; ATTEND Internal Medicine
DX: J44.1 Chronic obstructive pulmonary disease with (acute) exacerbation (principal); J18.9 Pneumonia, unspecified organism; I50.42 Chronic combined systolic (congestive) and diastolic (congestive) heart failure; N17.9 Acute kidney failure, unspecified; J44.0 Chronic obstructive pulmonary disease with (acute) lower respiratory infection; K21.9 Gastro-esophageal reflux disease without esophagitis; I25.10 Atherosclerotic heart disease of native coronary artery without angina pectoris; F17.210 Nicotine dependence, cigarettes, uncomplicated; Z71.6 Tobacco abuse counseling; Z95.0 Presence of cardiac pacemaker; Z95.5 Presence of coronary angioplasty implant and graft; Z88.8 Allergy status to other drugs, medicaments and biological substances; Z79.02 Long term (current) use of antithrombotics/antiplatelets; Z79.899 Other long term (current) drug therapy; Z11.52 Encounter for screening for COVID-19
CPT/HCPCS: 36415; 71046; 71250; 80048; 80053; 80061; 80076; 81003; 83605; 83735; 83880; 84132; 84484; 85025; 85610; 87040; 87428; 93005; 93306; 94640; 94760; 96365; 96375; 99285; J0456; J0696; J1644; J1938; J2405; J2919; J3535; J7030; J7040; J7050; J7512; J7613; J7614; J7644; J7799

== ENCOUNTER 2025-02-22 01:50 | Emergency (ER) | payer BC ==
[2025-02-22] MEDS ORDERED: ONDANSETRON 4 MG/2 ML VIAL ONE (02:16)
[2025-02-22 02:44] LABS: Absolute Lymphocytes (CBC) 1.7 K/uL (0.7-4.9); Hematocrit 47.0 % (39.6-49.0); Hemoglobin 14.6 g/dL (13.6-17.9); MCH 23.0 pg (27.0-35.0); MCHC 31.0 g/dL (32.0-36.0); MCV 74.3 fL (80-100); MPV 9.1 fL (7.6-11.3); Nucleated RBC Absolute Count 0.0 (0-0); Nucleated Red Blood Cells % 0.1 % (0-0); RBC Red Blood Cell Count 6.33 M/uL (4.33-5.43); White Blood Count 11.90 thou/uL (4.3-10.9)
[2025-02-22 03:01] LABS: ALT/SGPT 27 U/L (16-61); Albumin 3.1 g/dL (3.4-5.0); Albumin/Globulin Ratio 0.8 (1.1-1.8); Alkaline Phosphatase 74 U/L (45-117); Anion Gap 8.2 mEq/L (5.0-15.0); BUN Blood Urea Nitrogen 12 mg/dL (7-18); Bilirubin Indirect, Calculated 0.6 mg/dL (0.2-0.8); Globulin 3.8 g/dL (2.3-3.5); Glucose Level 127 mg/dL (74-106); Lipase 24 U/L (13-75); Magnesium 2.0 mg/dL (1.6-2.4); NT PRO-BNP 1206 pg/mL (<125); Potassium 3.2 mEq/L (3.5-5.1); Troponin High Sensitivity 25.7 pg/mL (<58.9)
[2025-02-22 03:02] LABS: AST/SGOT < 10 U/L (15-37)
[2025-02-22] MEDS ORDERED: CLOPIDOGREL 75 MG TABLET ONE (03:05)
[2025-02-22] MEDS ORDERED: ASPIRIN 81 MG CHEWABLE TABLET ONE (03:06)
[2025-02-22] MEDS ORDERED: ENOXAPARIN 100 MG/ML SYR SQ ONE (03:09)
[2025-02-22] MEDS ORDERED: POTASSIUM 25 MEQ EFFERV TAB ONE ×2 (03:13→07:23)
[2025-02-22] MEDS ORDERED: KCL 20 MEQ/100 mL IVPB 200 ML IV ONE (03:25)
--- NOTE | 2025-02-22 03:27 | EDPHYS ---
Physician Documentation [facility] Name: Hugo Guzman Age: 55 yrs Sex: Male : 1970 Arrival Date: 02/22/2025 Time: 01:50 Bed 6 Private MD: Paulo Velazquez H ED Physician Krishna Rodarte HPI: 02/22 02:11 This 55 yrs old Male presents to ER via Ambulatory with complaints of SOB. tt7 02:11 Patient reports several days of gradually worsening shortness of breath and increasing tt7 abdominal swelling and development of some trace edema to his lower extremities. He has past medical history of COPD and congestive heart failure, he reports that he has been taking double his home dose of furosemide due to his symptoms but it has not been resulting in adequate diuresis. Historical: - Allergies: 02:06 IV contrast; vc1 02:06 Levofloxacin; vc1 - Home Meds: 02:10 omeprazole 40 mg Oral capsule,delayed release (e.c.) 1 cap daily [Active]; Entresto bm8 24-26 mg oral tablet 1 tab 2 times per day [Active]; potassium citrate 10 mEq (1,080 mg) oral tablet, extended release 1 tab daily [Active]; gabapentin 300 mg oral capsule 1 cap daily [Active]; Plavix 75 mg Oral tablet 1 tab daily [Active]; Jardiance 10 mg oral tablet 1 tab daily [Active]; Lasix 80 mg Oral tablet 1 tab daily [Active]; potassium gluconate 595 mg (99 mg) oral tablet 1 tab daily [Active]; digoxin 125 mcg (0.125 mg) Oral tablet 0.125 mg daily [Active]; - PMHx: 02:06 chronic back pain; Chronic obstructive lung disease; Congestive heart failure; vc1 Myocardial infarction; - PSHx: 02:06 pacemaker; and defib; pancreatic sx; Stented artery; vc1 - Immunization history:: Adult Immunizations not immunized, Flu vaccine is up to date. - Infectious Disease History:: Denies. - Social history:: Smoking status: Patient reports the use of cigarette tobacco products, smokes one pack cigarettes per day. ROS: 03:13 Constitutional: negative for fever. Abdomen/GI: negative for abdominal pain, nausea, tt7 vomiting, diarrhea. MS/Extremity: negative for injury and deformity. Skin: negative for rash. Neuro: negative for focal weakness. 03:13 Cardiovascular: Positive for chest pain, edema, orthopnea, 03:13 Respiratory: Positive for orthopnea, shortness of breath, Exam: 03:37 Constitutional: vital signs reviewed, chronically ill appearing. Head/Face: tt7 normocephalic, atraumatic. Eyes: no conjunctival injection, anicteric sclerae. ENT: mucus membranes moist. Neck: trachea midline, no JVD, no meningismus. Cardiovascular: regular rate and rhythm, slight systolic murmur, no rubs, 1+ lower extremity edema. Respiratory: Slightly increased respiratory effort, no accessory muscle use, crackles in bilateral lower lobes without wheezes. Abdomen/GI: soft, mildly distended, nontender, no guarding or rebound, negative Craft's sign, no McBurney point tenderness. Back: normal ROM. Skin: warm, dry, intact, normal turgor, normal color, no rash. MS/ Extremity: normal ROM of extremities, no gross deformities. Neuro: alert and oriented with appropriate mental status, normal speech, follows commands, no focal neurologic deficits. Psych: Moderately anxious. Vital Signs: 02:03 BP 105 / 71; Pulse 93; Resp 20; Temp 96.7; Pulse Ox 94% ; Weight 82.55 kg; Height 6 ft. vc1 0 in. ; 02:31 BP 105 / 69; Pulse 95; Resp 24; Temp 97(TE); Pulse Ox 97% on 3 lpm NC; nh2 02:57 BP 107 / 72; Pulse 98; Resp 22; Pulse Ox 95% on 3 lpm NC; nh2 03:23 BP 102 / 71; Pulse 99; Resp 21; Pulse Ox 94% on 3 lpm NC; nh2 03:37 BP 111 / 78; Pulse 97; Resp 24; Pulse Ox 98% on 3 lpm NC; nh2 04:30 BP 96 / 68; Pulse 80; Resp 19; Pulse Ox 98% on 3 lpm NC; nh2 05:30 BP 97 / 73; Pulse 88; Resp 18; Pulse Ox 95% on 3 lpm NC; nh2 07:00 BP 106 / 78 LA Sitting (auto/reg); Pulse 73; Resp 18; Pulse Ox 98% on 3 lpm NC; jp5 08:00 BP 94 / 54; Pulse 79; Resp 18; Pulse Ox 98% on 3 lpm NC; jp5 09:00 BP 110 / 78; Pulse 80; Resp 18; Pulse Ox 95% on 3 lpm NC; jp5 10:00 BP 98 / 61; Pulse 74; Resp 18; Temp 98; Pulse Ox 96% on 3 lpm NC; jp5 11:00 BP 92 / 64; Pulse 80; Resp 18; Pulse Ox 95% on 3 lpm NC; jp5 12:00 BP 109 / 82; Pulse 84; Resp 18; Temp 98(O); Pulse Ox 97% on 3 lpm NC; jp5 02:03 Body Mass Index 24.68 (82.55 kg, 182.88 cm) vc1 [place] Coma Score: 02:06 Eye Response: spontaneous(4). Motor Response: obeys commands(6). Verbal Response: bm8 oriented(5). Total: 15. MDM: 01:59 Medical Screening Exam initiated tt7 03:14 Differential diagnosis: Anemia Anxiety Reaction CHF exacerbation, Chronic Obstructive tt7 Pulmonary Disease Myocardial Infarction pneumonia, Pneumothorax pulmonary edema, Unstable Angina. Data reviewed: vital signs, nurses notes, old medical records, lab test result(s), EKG, radiologic studies. 03:28 ED course: I independently interpreted the patient's EKG performed on 02/22/2025 at tt7 0201. On my interpretation, EKG demonstrates ventricularly paced rhythm, ventricular rate 90 bpm, left axis, QRS duration 182 ms, no Sgarbossa criteria, no STEMI. Cardiac monitoring was ordered due to the potential for ischemia causing dysrythmia. I independently interpreted the patient's cardiac rhythm as ventricular paced rhythm at a rate of 91 bpm on the event sales representative. I independently interpreted the patient's EKG performed on 02/22/2025 at 0244. On my interpretation, EKG demonstrates ventricularly paced rhythm, ventricular rate 88 bpm, left axis, QRS duration 168 ms, increased ST depression in V2 and V3, no Sgarbossa criteria, no STEMI. I independently interpreted the patient's EKG performed on 02/22/2025 at 0249. Posterior leads utilized. On my interpretation, EKG demonstrates ventricularly paced rhythm, ventricular rate 94 bpm, left axis, QRS duration 184 ms, no Sgarbossa criteria, no STEMI. Laboratory studies show troponin within normal limits, mild hypokalemia with potassium of 3.2, given the patient is on chronic digoxin therapy will replace with 40 mill equivalents of IV potassium, digoxin level ordered, patient loaded with dual antiplatelet therapy, will begin diuresis with 40 mg of IV Lasix and empirically anticoagulate the patient with 1 mg/kilogram of Lovenox. I spoke with the patient's wet silk hanger Dr. Haji based out of [facility] regarding the patient's presentation, laboratory study results, and EKG findings, discussed my emergency department interventions, he recommends that the patient be transferred to [facility] for continuity of care. Transfer initiated. 03:41 ED course: This patient has a medical condition that impairs one or more vital organ tt7 systems and has a high probability of imminent or life threatening deterioration in their condition. Management of this patient required my highest level of care and included frequent personal assessment and intervention. I personally spent 32 minutes of critical care time, exclusive of time spent on separately billable procedures, in the evaluation and management of this patient's condition. This critical care time included independently obtaining a history, examining the patient, pulse oximetry, cardiac telemetry monitoring, ordering and review of studies laboratory and imaging studies, development of a management plan, evaluation of patient's response to treatment, frequent reassessment, and discussion with other healthcare providers. 03:56 ED course: I independently interpreted the patient's chest x-ray. On my interpretation, tt7 chest x-ray demonstrates findings consistent with pulmonary edema. 02/22 02:01 Order name: Basic Metabolic Panel; Complete Time: 03:40 tt7 02/22 02:01 Order name: CBC with Diff; Complete Time: 02:47 tt7 02/22 02:01 Order name: LFT's; Complete Time: 03:40 tt7 02/22 02:01 Order name: Magnesium; Complete Time: 03:40 tt7 02/22 02:01 Order name: NT PRO-BNP; Complete Time: 03:40 tt7 02/22 02:01 Order name: Troponin HS; Complete Time: 03:40 tt7 02/22 02:01 Order name: Lipase; Complete Time: 03:40 tt7 02/22 03:10 Order name: Digoxin Level; Complete Time: 03:40 EDMS 02/22 02:01 Order name: XRAY Chest (1 view); Complete Time: 06:49 tt7 02/22 08:04 Order name: EKG Electrocardiogram EDMS 02/22 08:04 Order name: EKG Electrocardiogram EDMS 02/22 02:01 Order name: Cardiac monitoring; Complete Time: 02:04 tt7 02/22 02:01 Order name: EKG - Nurse/Tech; Complete Time: 02:04 tt7 02/22 02:01 Order name: IV Saline Lock; Complete Time: 02:04 tt7 02/22 02:01 Order name: Labs collected and sent; Complete Time: 02:04 tt7 02/22 02:01 Order name: O2 Per Protocol; Complete Time: 02:04 tt7 02/22 02:01 Order name: O2 Sat Monitoring; Complete Time: 02:04 tt7 Administered Medications: 07:21 Discontinued: potassium [id number] meq IV at calculated rate once; administer over 4 alysia hours 02:20 Drug: Ondansetron IVP 4 mg IVP once; VO at 0215 over 2 minutes Route: IVP; Site: right nh2 antecubital; 03:00 Follow up: Response: No adverse reaction; Nausea is decreased nh2 03:11 Drug: Clopidogrel PO 300 mg PO once Route: PO; nh2 03:34 Follow up: Response: No adverse reaction nh2 03:12 Drug: Aspirin PO Chewable Tablet 324 mg PO once; 81 mg tablets x 4 Route: PO; nh2 03:34 Follow up: Response: No adverse reaction nh2 03:12 Drug: Enoxaparin Sub-Q 1 mg/kg Sub-Q once Route: Sub-Q; Site: left lower abdomen; nh2 03:34 Follow up: Response: No adverse reaction nh2 03:20 Not Given (Patient Refused): potassiumeffervescent tablet 50 meq PO once; dissolve in 4 nh2 ounces of water or juice 03:31 Drug: Furosemide IVP 40 mg IVP once; give over 2 minutes Route: IVP; Site: right at6 forearm; 04:09 Follow up: Response: No adverse reaction nh2 03:33 Drug: Potassium Chloride IV 40 mEq IV at calculated rate once; administer over 4 hours nh2 Route: IV; Rate: calculated rate; Site: right antecubital; 03:49 Follow up: Rate change 25 ml/hr; pt c/o burning in IV site, notified; rate lowered nh2 to 25 mL/hr 07:03 Follow up: IV Status: IV converted to saline lock jp5 03:43 Drug: Ativan IVP 0.5 mg IVP once Route: IVP; Site: right forearm; at6 04:09 Follow up: Response: No adverse reaction nh2 07:17 Drug: Doxycycline PO 100 mg PO once Route: PO; jp5 08:00 Follow up: Response: No adverse reaction ar8 07:17 Drug: MethylPrednisoLONE IVP 125 mg IVP once Route: IVP; Site: right antecubital; jp5 08:00 Follow up: Response: No adverse reaction ar8 07:30 Not Given (Patient Refused; Pt states "I'm done with potassium, I took all I could jp5 take"): potassiumeffervescent tablet 50 meq PO once; dissolve in 4 ounces of water or juice Disposition: 03:57 Co-signature as Attending Physician, Krishna Rodarte DO. tt7 Disposition Summary: 02/22/25 03:26 Transfer Ordered Notes: Transfer Location: [facility] tt7 Reason: Patient request tt7 Condition: Fair tt7 Problem: an acute exacerbation tt7 Symptoms: have improved tt7 Accepting Physician: Dr. Haji(02/22/25 12:30) ll1 Diagnosis - Acute on chronic systolic (congestive) heart failure tt7 - Dyspnea tt7 - Hypokalemia tt7 - Abnormal electrocardiogram [ECG] [EKG] tt7 Discharge Instructions: - Discharge Summary Sheet nh2 Forms: - SBAR form nh2 - Medication Reconciliation Form tt7 Signatures: Dispatcher [employer] EDJack Miller MD MD cha Lewis, Lynsay RN RN ll1 Cristy Peters RN RN vc1 Alexys Banuelos RN RN bm8 Lissette Ashley RN RN jp5 Jarad Dotson Jr, RN RN nh2 Krishna Rodarte DO DO tt7 Katharina Rodarte, RN RN at6 Ector Goodwin RN ar8 Corrections: (The following items were deleted from the chart) 02:02 02:02 BASIC METABOLIC PANEL+C.LAB.BRZ ordered. EDMS EDMS 02:02 02:02 CBC+H.LAB.BRZ ordered. EDMS EDMS 02:02 02:02 HEPATIC FUNCTION+C.LAB.BRZ ordered. EDMS EDMS 02:02 02:02 MAGNESIUM+C.LAB.BRZ ordered. EDMS EDMS 02:02 02:02 PROBNP+C.LAB.BRZ ordered. EDMS EDMS 02:02 02:02 Troponin High Sensitivity+C.LAB.BRZ ordered. EDMS EDMS 02:02 02:02 LIPASE+C.LAB.BRZ ordered. EDMS EDMS 02:02 02:02 Chest Single View+RAD.RAD.BRZ ordered. EDMS EDMS 03:08 03:05 DIGOXIN+C.LAB.BRZ ordered. EDMS EDMS 03:39 03:37 Constitutional: vital signs reviewed, chronically ill appearing. Head/Face: tt7 normocephalic, atraumatic. Eyes: no conjunctival injection, anicteric sclerae. ENT: mucus membranes moist. Neck: trachea midline, no JVD, no meningismus. Cardiovascular: regular rate and rhythm, slight systolic murmur, no rubs, 1+ lower extremity edema. Respiratory: Slightly increased respiratory effort, no accessory muscle use, crackles in bilateral lower lobes without wheezes. Abdomen/GI: soft, mildly distended, nontender, no guarding or rebound, negative Craft's sign, no McBurney point tenderness. Back: normal ROM. Skin: warm, dry, intact, normal turgor, normal color, no rash. MS/ Extremity: normal ROM of extremities, no gross deformities. Neuro: alert and oriented with appropriate mental status, normal speech, follows commands, no focal neurologic deficits. Psych: appropriate mood and affect. tt7 12:30 03:26 Dr. Haji tt7 ll1
--- NOTE | 2025-02-22 03:27 | ER ---
Nurse's Notes [facility] Name: Hugo Guzman Age: 55 yrs Sex: Male : 1970 Arrival Date: 02/22/2025 Time: 01:50 Bed 6 Private MD: Paulo Velazquez H Diagnosis: Acute on chronic systolic (congestive) heart failure;Dyspnea;Hypokalemia;Abnormal electrocardiogram [ECG] [EKG] Presentation: 02/22 02:03 Chief complaint: Patient states: shortness of breath, abdominal bloating, and dizzing. vc1 Coronavirus screen: Client denies travel out of the [place] in the last 14 days. At this time, the client does not indicate any symptoms associated with coronavirus-19. Ebola Screen: Patient negative for fever greater than or equal to 101.5 degrees Fahrenheit, and additional compatible Ebola Virus Disease symptoms Patient denies exposure to infectious person. Patient denies travel to an Ebola-affected area in the 21 days before illness onset. No symptoms or risks identified at this time. Initial Sepsis Screen: Does the patient meet any 2 criteria? No. Patient's initial sepsis screen is negative. Does the patient have a suspected source of infection? No. Patient's initial sepsis screen is negative. Risk Assessment: Do you want to hurt yourself or someone else? Patient reports no desire to harm self or others. Onset of symptoms was February 22, 2025. 02:03 Method Of Arrival: Ambulatory vc1 02:03 Acuity: VAIBHAV 3 vc1 Triage Assessment: 02:04 General: Appears distressed, uncomfortable, Behavior is calm, cooperative, appropriate bm8 for age. Pain: Complains of pain in chest Pain currently is 7 out of 10 on a pain scale. EENT: No deficits noted. No signs and/or symptoms were reported regarding the EENT system. Neuro: No deficits noted. Level of Consciousness is awake, alert, obeys commands, Oriented to person, place, time, situation, Appropriate for age. Cardiovascular: Reports chest pain, nausea, shortness of breath, Heart tones S1 S2 Capillary refill < 3 seconds in bilateral fingers Patient's skin is warm and dry. Respiratory: Reports shortness of breath air hunger Airway is patent Respiratory effort is even, labored, using tripod position, Respiratory pattern is symmetrical, Breath sounds with crackles in left lower lobe, right lower lobe, left posterior lower lobe, right posterior middle lobe and right posterior lower lobe Onset: The symptoms/episode began/occurred 2 days, the patient has moderate shortness of breath. GI: Reports nausea. : No signs and/or symptoms were reported regarding the genitourinary system. Derm: No signs and/or symptoms reported regarding the dermatologic system. Musculoskeletal: No signs and/or symptoms reported regarding the musculoskeletal system. Historical: - Allergies: 02:06 IV contrast; vc1 02:06 Levofloxacin; vc1 - Home Meds: 02:10 omeprazole 40 mg Oral capsule,delayed release (e.c.) 1 cap daily [Active]; Entresto bm8 24-26 mg oral tablet 1 tab 2 times per day [Active]; potassium citrate 10 mEq (1,080 mg) oral tablet, extended release 1 tab daily [Active]; gabapentin 300 mg oral capsule 1 cap daily [Active]; Plavix 75 mg Oral tablet 1 tab daily [Active]; Jardiance 10 mg oral tablet 1 tab daily [Active]; Lasix 80 mg Oral tablet 1 tab daily [Active]; potassium gluconate 595 mg (99 mg) oral tablet 1 tab daily [Active]; digoxin 125 mcg (0.125 mg) Oral tablet 0.125 mg daily [Active]; - PMHx: 02:06 chronic back pain; Chronic obstructive lung disease; Congestive heart failure; vc1 Myocardial infarction; - PSHx: 02:06 pacemaker; and defib; pancreatic sx; Stented artery; vc1 - Immunization history:: Adult Immunizations not immunized, Flu vaccine is up to date. - Infectious Disease History:: Denies. - Social history:: Smoking status: Patient reports the use of cigarette tobacco products, smokes one pack cigarettes per day. Screenin:06 Abuse screen: Denies threats or abuse. Nutritional screening: No deficits noted. vc1 Tuberculosis screening: No symptoms or risk factors identified. 02:06 [facility] ED Fall Risk Assessment (Adult) History of falling in the last 3 months, bm8 including since admission No falls in past 3 months (0 pts) Confusion or Disorientation No (0 pts) Intoxicated or Sedated No (0 pts) Impaired Gait No (0 pts) Mobility Assist Device Used No (0 pt) Altered Elimination No (0 pt) Score/Fall Risk Level 0 - 2 = Low Risk Oriented to surroundings, Maintained a safe environment, Educated pt \\T\\ family on fall prevention, incl call for assistance when getting out of bed, Assessed \\T\\ reinforced patient's understanding of fall precautions, Hourly rounding (assess needs \\T\\ fall precautionary measures) done, Used ambulatory aids as needed (educated on \\T\\ assisted with), Used gait belt as appropriate. Assessment: 02:06 Reassessment: see triage assessment. bm8 02:08 Neuro: Level of Consciousness is awake, alert, obeys commands, Oriented to person, nh2 place, time, situation, [employer] are equal bilaterally. Cardiovascular: Rhythm is. Cardiovascular: Reports chest pain, Heart tones S1 S2 present Patient's skin is warm and dry. Rhythm is Respiratory: Reports shortness of breath air hunger Respiratory effort is even, unlabored, Breath sounds with crackles in left lower lobe, right lower lobe, left posterior lower lobe and right posterior lower lobe. GI: Abdomen is round distended, Bowel sounds present X 4 quads. Abd is soft and non tender X 4 quads. Reports nausea. 02:28 Reassessment: pt c/o air hunger and dyspnea, O2 currently at 96% on RA, crackles nh2 present in the lower lobes bilaterally. MD notified. 02:40 Reassessment: pt's reports new onset of warm sensation going through body. upon nh2 entering room, patient was seen standing, reports feeling anxious. 02:41 Reassessment: MD at bedside, received VO for repeat EKG. nh2 02:45 Reassessment: MD at bedside again, received VO for posterior EKG. nh2 03:10 Reassessment: Patient and family was updated by provider. All questions answered at at6 this time. Patient appears anxious. 03:36 Reassessment: Patient is alert, oriented x 3, equal unlabored respirations, skin nh2 warm/dry/pink. Patient states symptoms have improved. 04:30 Reassessment: Patient and/or family updated on plan of care and expected duration. Pain nh2 level reassessed. Patient is alert, oriented x 3, equal unlabored respirations, skin warm/dry/pink. Patient states feeling better. 05:08 Reassessment: Patient appears in no apparent distress at this time. Patient sleeping in at6 bed at this time. Chest rise and fall observed. Patient states feeling better. 05:33 Reassessment: patient asleep at thist jesenia. at6 06:00 Reassessment: Patient and/or family updated on plan of care and expected duration. Pain nh2 level reassessed. pt resting in bed comfortably with visible symmetric chest rise. at bedside. call light placed within arms reach. 06:29 Reassessment: patient resting in bed in no apparent distress with visible chest rise. nh2 call light placed within reach. 06:45 Reassessment: Patient appears in no apparent distress at this time. Patient and/or jp5 family updated on plan of care and expected duration. Pain level reassessed. Patient is alert, oriented x 3, equal unlabored respirations, skin warm/dry/pink. Patient denies pain at this time. 07:03 General: Pt has had IV potassium infusing started by yeast supervisor RN. Pt requested for jp5 IV potassium to be stopped, stated "I've tried long enough, it king I cant anymore. Turn it off." IV stopped and flushed with 10ml NS. ED MD informed. . 11:49 Reassessment: Attempted to call patient report to [facility]. No answer, unable to ar8 give report. Vital Signs: 02:03 BP 105 / 71; Pulse 93; Resp 20; Temp 96.7; Pulse Ox 94% ; Weight 82.55 kg; Height 6 ft. vc1 0 in. ; 02:31 BP 105 / 69; Pulse 95; Resp 24; Temp 97(TE); Pulse Ox 97% on 3 lpm NC; nh2 02:57 BP 107 / 72; Pulse 98; Resp 22; Pulse Ox 95% on 3 lpm NC; nh2 03:23 BP 102 / 71; Pulse 99; Resp 21; Pulse Ox 94% on 3 lpm NC; nh2 03:37 BP 111 / 78; Pulse 97; Resp 24; Pulse Ox 98% on 3 lpm NC; nh2 04:30 BP 96 / 68; Pulse 80; Resp 19; Pulse Ox 98% on 3 lpm NC; nh2 05:30 BP 97 / 73; Pulse 88; Resp 18; Pulse Ox 95% on 3 lpm NC; nh2 07:00 BP 106 / 78 LA Sitting (auto/reg); Pulse 73; Resp 18; Pulse Ox 98% on 3 lpm NC; jp5 08:00 BP 94 / 54; Pulse 79; Resp 18; Pulse Ox 98% on 3 lpm NC; jp5 09:00 BP 110 / 78; Pulse 80; Resp 18; Pulse Ox 95% on 3 lpm NC; jp5 10:00 BP 98 / 61; Pulse 74; Resp 18; Temp 98; Pulse Ox 96% on 3 lpm NC; jp5 11:00 BP 92 / 64; Pulse 80; Resp 18; Pulse Ox 95% on 3 lpm NC; jp5 12:00 BP 109 / 82; Pulse 84; Resp 18; Temp 98(O); Pulse Ox 97% on 3 lpm NC; jp5 02:03 Body Mass Index 24.68 (82.55 kg, 182.88 cm) vc1 Juany Coma Score: 02:06 Eye Response: spontaneous(4). Motor Response: obeys commands(6). Verbal Response: bm8 oriented(5). Total: 15. ED Course: 01:54 Patient arrived in ED. gm2 01:54 Paulo Velazquez DO is Private Physician. gm2 02:01 Krishna Rodarte DO is Attending Physician. tt7 02:04 Alexys Banuelos, RN is Primary Nurse. bm8 02:04 Inserted saline lock: 18 gauge in right antecubital area, using aseptic technique. vk Blood collected. Flushed with 10 mL NS. 02:04 Arm band placed on right wrist. bm8 02:06 Triage completed. vc1 02:06 Initial lab(s) drawn, by hi, sent to lab. EKG done, by ED staff, reviewed by Krishna Rodarte DO. Inserted. Patient maintains SpO2 saturation greater than 95% on room air. 02:06 Patient has correct armband on for positive identification. Bed in low position. Call bm8 light in reach. Side rails up X 1. Adult w/ patient. Client placed on continuous cardiac and pulse oximetry monitoring. NIBP monitoring applied. front desk monitor on. Pulse ox on. NIBP on. Door closed. Noise minimized. Pillow given. Verbal reassurance given. Head of bed elevated. 02:06 Provided Education on: using call light for assistance. nh2 02:08 No provider procedures requiring assistance completed. nh2 02:30 Oxygen administration via nasal cannula \\T\\ 3L/min. nh2 02:39 XRAY Chest (1 view) In Process Unspecified. EDMS 02:41 EKG done, by ED staff, reviewed by Krishna Rodarte DO. nh2 02:45 EKG done, by ED staff, reviewed by Krishna Rodarte DO. nh2 03:33 initiated with [facility] spoke with Antoinette. bloom 03:47 Inserted saline lock: 18 gauge in left forearm, using aseptic technique. Flushed with nh2 10 mL NS. 06:11 Patient was accepted to [facility], Patient has been wait listed advised to Dr. Cayden bloom as well as patient. 06:58 Lissette Ashley RN is Primary Nurse. jp5 12:03 Report given to CLOVIS Juan at [facility]. ar8 12:25 Patient transferred, IV remains in place. ar8 Administered Medications: 07:21 Discontinued: potassium [id number] meq IV at calculated rate once; administer over 4 alysia hours 02:20 Drug: Ondansetron IVP 4 mg IVP once; VO at 0215 over 2 minutes Route: IVP; Site: right nh2 antecubital; 03:00 Follow up: Response: No adverse reaction; Nausea is decreased nh2 03:11 Drug: Clopidogrel PO 300 mg PO once Route: PO; nh2 03:34 Follow up: Response: No adverse reaction nh2 03:12 Drug: Aspirin PO Chewable Tablet 324 mg PO once; 81 mg tablets x 4 Route: PO; nh2 03:34 Follow up: Response: No adverse reaction nh2 03:12 Drug: Enoxaparin Sub-Q 1 mg/kg Sub-Q once Route: Sub-Q; Site: left lower abdomen; nh2 03:34 Follow up: Response: No adverse reaction nh2 03:20 Not Given (Patient Refused): potassiumeffervescent tablet 50 meq PO once; dissolve in 4 nh2 ounces of water or juice 03:31 Drug: Furosemide IVP 40 mg IVP once; give over 2 minutes Route: IVP; Site: right at6 forearm; 04:09 Follow up: Response: No adverse reaction nh2 03:33 Drug: Potassium Chloride IV 40 mEq IV at calculated rate once; administer over 4 hours nh2 Route: IV; Rate: calculated rate; Site: right antecubital; 03:49 Follow up: Rate change 25 ml/hr; pt c/o burning in IV site, notified; rate lowered nh2 to 25 mL/hr 07:03 Follow up: IV Status: IV converted to saline lock jp5 03:43 Drug: Ativan IVP 0.5 mg IVP once Route: IVP; Site: right forearm; at6 04:09 Follow up: Response: No adverse reaction nh2 07:17 Drug: Doxycycline PO 100 mg PO once Route: PO; jp5 08:00 Follow up: Response: No adverse reaction ar8 07:17 Drug: MethylPrednisoLONE IVP 125 mg IVP once Route: IVP; Site: right antecubital; jp5 08:00 Follow up: Response: No adverse reaction ar8 07:30 Not Given (Patient Refused; Pt states "I'm done with potassium, I took all I could jp5 take"): potassiumeffervescent tablet 50 meq PO once; dissolve in 4 ounces of water or juice Medication: 02:06 VIS not applicable for this client. bm8 Intake: Output: 07:21 Urine: 1100ml (Voided); Total: 1100ml. jp5 Outcome: 03:26 ER care complete, transfer ordered by . tt7 12:25 Transferred by ground EMS to [facility], Transfer form completed. ar8 12:25 Condition: stable 12:25 Discharge instructions given to EMS, patient report given to EMS 12:30 Patient left the ED. ll1 Signatures: Dispatcher [employer] EDMS Danitza Toledo RN RN ll1 Cristy Peters RN RN 1 Noa Art gm2 Kiki Kebede Brad RN CLOVIS bm8 Lissette Ashley RN RN jp5 Jarad Dotson Jr RN CLOVIS nh2 Ector Goodwin RN RN ar8 Krishna Rodarte, DO tt7 Katharina Rodarte RN RN at6 Corrections: (The following items were deleted from the chart) 02:13 02:08 Cardiovascular: Heart tones S1 S2 present Patient's skin is warm and dry. Rhythm nh2 is nh2 02:13 02:08 GI: Abdomen is round distended, nh2 nh2 02:32 02:28 Reassessment: pt c/o air hunger and dyspnea, O2 currently at 96% on RA, crackles nh2 present in the lower lobes bilaterally. 3L of O2 applied via NC. pt tolerating well. nh2 02:55 02:40 Reassessment: pt's reports new onset of warm sensation go through body. upon nh2 entering room, patient was seen standing, reports feeling anxious. nh2 03:39 02:40 Reassessment: pt's reports new onset of warm sensation go through body. upon nh2 entering room, patient was seen standing, reports feeling anxious nh2 03:41 03:37 BP 98 / 80; Pulse 97bpm; Resp 24bpm; Pulse Ox 98% 3 lpm Nasal Cannula; nh2 nh2 06:04 05:33 Reassessment: [place] PD case #: [id number]. TXFNE will file with CPS. at6 at6 06:32 05:30 BP 97 / 73; Pulse 88bpm; Resp 18bpm; Pulse Ox 98%; nh2 nh2 07:29 07:26 Potassium PO Effervescent Tablet 50 mEq PO jp5 jp5
[2025-02-22] MEDS ORDERED: FUROSEMIDE 40 MG/4 ML VIAL ONE (03:29)
[2025-02-22] MEDS ORDERED: LORazepam 2 MG/ML VIAL ONE (03:41)
--- NOTE | 2025-02-22 06:39 | RAD REPORT ---
EXAMINATION: ONE VIEW CHEST XR CLINICAL INDICATION: Male, 55 years old.,DYSPNEA TECHNIQUE: Frontal chest projection is submitted. Examination is limited by patient positioning and t echnique. COMPARISON: 01/10/2025 FINDINGS: The lungs are well inflated. Progressive patchy bilateral mid to lower lung airspace opacities with b ackground interstitial prominence. No pneumothorax or sizable effusion. The heart is normal in size. Mediastinal contours are unremarkable. IMPRESSION: Progressive bilateral airspace opacities as above, concerning for COPD exacerbation.
[2025-02-22] MEDS ORDERED: DOXYCYCLINE 100 MG CAP PO ONE (07:16)
[2025-02-22] MEDS ORDERED: METHYLPREDNISOLONE 125 MG INJ ONE (07:16)
[2025-02-22 13:34] VITALS: TEMP 98
[2025-02-22 13:38] VITALS: BP 109/82; O2SAT 97
== END 2025-02-22 12:30 | disposition short-term general hospital (02) ==
LOC: ER 01:50
DX: I50.23 Acute on chronic systolic (congestive) heart failure (principal); E87.6 Hypokalemia; R94.31 Abnormal electrocardiogram [ECG] [EKG]; J44.9 Chronic obstructive pulmonary disease, unspecified; I25.2 Old myocardial infarction; F17.210 Nicotine dependence, cigarettes, uncomplicated; Z95.810 Presence of automatic (implantable) cardiac defibrillator; Z79.01 Long term (current) use of anticoagulants
CPT/HCPCS: 93005 ×3; 85025; 80048; 36415; 83735; 80162; 80076; 84484; 83690; 83880; 71045; 96372; 99285; J3480; J1650; J1938; J2919; J2405